=== PATIENT | male | born 1955 | race Caucasian/White ===

== ENCOUNTER → 2016-11-06 | Outpatient (CLI) | payer BC ==
[2016-11-06 11:20] LABS: CHLORIDE,CL 106 mmol/L (98-110); SODIUM,NA 137 mmol/L (136-146)
== END ==
LOC: MW.CHIM 10:35
PROVIDERS: ATTEND Internal Medicine
DX: Z12.5 Encounter for screening for malignant neoplasm of prostate (principal); I10 Essential (primary) hypertension; B19.20 Unspecified viral hepatitis C without hepatic coma
CPT/HCPCS: 36415; 80053; 80061; 83036; 84439; 84443; 85025; G0103; 87522

== ENCOUNTER 2019-03-14 18:15 | Observation (INO) | payer MEDICARE, OTHER ==
[2019-03-14] MEDS ORDERED: Sodium Chloride 0.9% 2.5 ML Syringe FLUSH PRN (18:21)
[2019-03-14] MEDS ORDERED: Sodium Chloride 0.9% 10 ML Syringe FLUSH PRN (18:21)
[2019-03-14] MEDS ORDERED: Ondansetron 4 MG/2 ML SDV IVPUSH ONE (18:22)
[2019-03-14] MEDS ORDERED: Aspirin 81 MG Tab.Chew PO ONE (18:35)
[2019-03-14] MEDS ORDERED: Nitroglycerin 0.4 MG Tab.SL ONE (18:37)
--- NOTE | 2019-03-14 18:42 | EDM.PDOC ---
ED HPI GENERAL MEDICAL PROBLEM - General Chief Complaint: Neurological Problem Stated Complaint: FAINT/DIZZINESS Time Seen by Provider: 03/14/19 18:16 Source of Information: Reports: Family History Limitations: Reports: No Limitations - History of Present Illness INITIAL COMMENTS - FREE TEXT/NARRATIVE: History of present illness: []Patient was sitting at home watching a game when he became very sweaty, dizzy with a spinning sensation and generally unwell. His took his blood pressure and found to be 180/100's which is unusual for him. He then complained of a headache and blurry vision, denies any numbness, tingling, chest pain or shortness of breath. Once in the ER patient admitted that he's had 2 episodes in the past 2 weeks with similar symptoms. He denies any palpitations and states that his mother suffers from atrial fibrillation. Review of systems: As per history of present illness and below otherwise all systems reviewed and negative. Past medical history: As per history of present illness and as reviewed below otherwise noncontributory. Surgical history: As per history of present illness and as reviewed below otherwise noncontributory. Social history: No reported history of drug or alcohol abuse. Family history: As per history of present illness and as reviewed below otherwise noncontributory. Physical exam: General: Well developed, well nourished in NAD HEENT: Atraumatic, normocephalic, pupils reactive, negative for conjunctival pallor or scleral icterus, mucous membranes moist, throat clear, neck supple, nontender, trachea midline. Lungs: Clear to auscultation, breath sounds equal bilaterally, chest nontender. Heart: S1S2, regular, negative for clicks, rubs, or JVD. Abdomen: NABS, Soft, nondistended, nontender. Negative for masses or hepatosplenomegaly. Negative for costovertebral tenderness. Pelvis: Stable nontender. Genitourinary: Deferred. Rectal: Deferred. Extremities: Atraumatic, negative for cords or calf pain. Neurovascular unremarkable. Neuro: Awake, alert, oriented. Cranial nerves II through XII unremarkable. Cerebellum unremarkable. Motor and sensory unremarkable throughout. Exam nonfocal. Skin:warm and dry Diagnostics: CBC, chemistry, EKG, troponin, chest x-ray, CT head Therapeutics: Aspirin, nitroglycerin ED Course: Improved. After one nitroglycerin patient's blood pressure dropped to 150/80's and symptoms began to resolve. discussed with Dr. Elias who agrees to admit for observation of blood pressure control, and repeat troponins. Impression: Hypertensive urgency Prescriptions: none Plan: Admit for observation Definitive disposition and diagnosis as appropriate pending reevaluation and review of above. 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 Sulfa (Sulfonamide Allergy víctor Verified 03/14/19 20:56 Antibiotics) corry syndrome Home Meds: Home Meds Ascorbic Acid [Vitamin C] 500 mg PO DAILY 05/05/15 [History] Ca Carb/D3/Argnin/Inos/Silicon [Bone Density Calcium + D Cplt] 1 tab PO DAILY [History] Calcium Polycarbophil [Fiber Tabs] 1 tab PO DAILY 05/05/15 [History] Cholecalciferol (Vitamin D3) [Vitamin D3] 2,000 units PO BID 05/05/15 [History] L.acidoph,Paracasei, B.lactis [Probiotic] 1 tab PO DAILYBH 05/05/15 [History] Losartan Potassium 100 mg PO DAILY 05/05/15 [History] Metoprolol Succinate [Toprol XL] 50 mg PO BEDTIME 05/05/15 [History] Multivitamin [Multivitamins] 1 tab PO DAILY 05/05/15 [History] [place]-3 Fatty Acids [[place]-3] 1 tab PO DAILY 05/05/15 [History] Psyllium Husk/Aspartame [Metamucil [facility] Powder] 1 dose PO DAILY 05/05/15 [History] [place]'s Wort 1 tab PO DAILY 05/05/15 [History] Vitamin B Complex 1 tab PO DAILY 05/05/15 [History] hydroCHLOROthiazide [Hydrochlorothiazide] 12.5 mg PO DAILY 05/05/15 [History] Past Medical History HEENT History: Reports: None Cardiovascular History: Reports: Hypertension Respiratory History: Reports: Other (See Below) Other Respiratory History: former smoker Other Gastrointestinal History: hx hepatitis C (finished tx for this in 2014); occasional heartburn Musculoskeletal History: Reports: None Neurological History: Reports: None Psychiatric History: Reports: Anxiety - Infectious Disease History Infectious Disease History: Reports: Chicken Pox, Hepatitis C, Measles, Mumps, Other (See Below) Other Infectious Disease History: treated and cleared from Hep C - Past Surgical History HEENT Surgical History: Reports: Cataract Surgery, Other (See Below) Other HEENT Surgeries/Procedures: hx sinus surgery; dental implants Cardiovascular Surgical History: Reports: None Respiratory Surgical History: Reports: None GI Surgical History: Reports: None Other Neurological Surgeries/Procedures: hx of back and neck surgery Musculoskeletal Surgical History: Reports: Carpal Tunnel Other Musculoskeletal Surgeries/Procedures:: hx of back, neck, R knee, hand and elbow surgery Social & Family History - Family History Family Medical History: Noncontributory - Tobacco Use Smoking Status *Q: Former Smoker Used Tobacco, but Quit: Yes Month/Year Tobacco Last Used: 2005 - Caffeine Use Caffeine Use: Reports: Coffee - Alcohol Use Days Per Week of Alcohol Use: 7 Number of Drinks Per Day: 1 Total Drinks Per Week: 7 - Recreational Drug Use Recreational Drug Use: No ED ROS GENERAL - Review of Systems Review Of Systems: See Below ED EXAM, DIZZINESS - Physical Exam Exam: See Below Course - Vital Signs Last Recorded V/S: Last Vital Signs Temp 98.0 F 03/15/19 04:00 Pulse 70 03/15/19 04:00 Resp 16 03/15/19 04:00 BP 124/60 03/15/19 04:00 Pulse Ox 93 L 03/15/19 04:00 - Orders/Labs/Meds Orders: Active Orders 24 hr Category Date Time Status Patient Status [ADT] Stat ADT 03/14/19 19:12 Active Cardiac Monitoring [RC] Q8H Care 03/14/19 18:21 Active EKG Documentation Completion [RC] STAT Care 03/14/19 18:21 Active Nitroglycerin [Nitrostat] Med 03/14/19 18:56 Active 0.4 mg SL Q5M PRN Sodium Chloride 0.9% [Saline Flush] Med 03/14/19 18:21 Active 10 ml FLUSH ASDIRECTED PRN Sodium Chloride 0.9% [Saline Flush] Med 03/14/19 18:21 Active 2.5 ml FLUSH ASDIRECTED PRN Saline Lock Insert [OM.PC] Stat Oth 03/14/19 18:21 Ordered Medication Orders Acetaminophen (Tylenol) 650 mg PO Q6H PRN PRN Reason: Pain Nitroglycerin (Nitrostat) 0.4 mg SL Q5M PRN PRN Reason: Chest Pain Oxycodone HCl (Oxycodone) 5 mg PO Q4H PRN PRN Reason: Pain (moderate 4-6) Sodium Chloride (Saline Flush) 10 ml FLUSH ASDIRECTED PRN PRN Reason: Keep Vein Open Last Admin: 03/14/19 18:40 Dose: 10 ml Sodium Chloride (Saline Flush) 2.5 ml FLUSH ASDIRECTED PRN PRN Reason: Keep Vein Open Last Admin: 03/14/19 18:40 Dose: 2.5 ml Labs: Laboratory Tests 03/14/19 03/14/19 Range/Units 18:30 18:30 WBC 6.13 (4.0-11.0) K/uL RBC 4.57 (4.50-5.90) M/uL Hgb 14.2 (13.0-17.0) g/dL Hct 41.9 (38.0-50.0) % MCV 91.7 (80.0-98.0) fL MCH 31.1 (27.0-32.0) pg MCHC 33.9 (31.0-37.0) g/dL RDW Std Deviation 46.3 (28.0-62.0) fl RDW Coeff of Shantal 14 (11.0-15.0) % Plt Count 156 (150-400) K/uL MPV 9.10 (7.40-12.00) fL Neut % (Auto) 58.1 (48.0-80.0) % Lymph % (Auto) 27.7 (16.0-40.0) % [place] % (Auto) 10.9 (0.0-15.0) % Eos % (Auto) 2.6 (0.0-7.0) % Baso % (Auto) 0.7 (0.0-1.5) % Neut # (Auto) 3.6 (1.4-5.7) K/uL Lymph # (Auto) 1.7 (0.6-2.4) K/uL [place] # (Auto) 0.7 (0.0-0.8) K/uL Eos # (Auto) 0.2 (0.0-0.7) K/uL Baso # (Auto) 0.0 (0.0-0.1) K/uL Nucleated RBC % 0.0 /100WBC Nucleated RBCs # 0 K/uL Sodium 138 (136-148) mmol/L Potassium 3.6 (3.5-5.1) mmol/L Chloride 101 (98-107) mmol/L Carbon Dioxide 27.4 (21.0-32.0) mmol/L BUN 29 H (7.0-18.0) mg/dL Creatinine 1.3 (0.8-1.3) mg/dL Est Cr Clr Drug Dosing 62.18 mL/min Estimated GFR (MDRD) 55.4 ml/min Glucose 124 H (74-106) mg/dL Calcium 9.2 (8.5-10.1) mg/dL Total Bilirubin 0.3 (0.2-1.0) mg/dL AST 35 (15-37) IU/L ALT 71 H (14-63) IU/L Alkaline Phosphatase 52 (46-116) U/L Troponin I < 0.050 (0.000-0.056) ng/mL Total Protein 7.3 (6.4-8.2) g/dL Albumin 3.6 (3.4-5.0) g/dL Globulin 3.7 (2.6-4.0) g/dL Albumin/Globulin Ratio 1.0 (0.9-1.6) Meds: Medications Generic Name Dose Route Start Last Admin Trade Name Freq PRN Reason Stop Dose Admin Acetaminophen 650 mg 03/14/19 22:10 Tylenol PO Q6H PRN Pain Nitroglycerin 0.4 mg 03/14/19 18:56 Nitrostat SL Q5M PRN Chest Pain Oxycodone HCl 5 mg 03/14/19 22:11 Oxycodone PO Q4H PRN Pain (moderate 4-6) Sodium Chloride 10 ml 03/14/19 18:21 03/14/19 18:40 Saline Flush FLUSH 10 ml ASDIRECTED PRN Administration Keep Vein Open Sodium Chloride 2.5 ml 03/14/19 18:21 03/14/19 18:40 Saline Flush FLUSH 2.5 ml ASDIRECTED PRN Administration Keep Vein Open Discontinued Medications Generic Name Dose Route Start Last Admin Trade Name Freq PRN Reason Stop Dose Admin Aspirin 324 mg 03/14/19 18:35 03/14/19 18:39 Aspirin PO 03/14/19 18:36 324 mg ONETIME ONE Administration Nitroglycerin 0.4 mg 03/14/19 18:35 03/14/19 19:05 Nitrostat SL 0.4 mg Q5M PRN Administration Chest Pain Nitroglycerin Confirm 03/14/19 18:37 03/14/19 18:59 Nitrostat Administered 03/14/19 18:38 Not Given Dose 1.2 mg .ROUTE .STK-MED ONE Ondansetron HCl 4 mg 03/14/19 18:22 03/14/19 18:40 Zofran IVPUSH 03/14/19 18:23 4 mg ONETIME ONE Administration Departure - Departure Time of Disposition: 20:00 Disposition: Refer to Observation Condition: Good Clinical Impression: Hypertensive urgency - Discharge Information *PRESCRIPTION DRUG MONITORING PROGRAM REVIEWED*: No *COPY OF PRESCRIPTION DRUG MONITORING REPORT IN PATIENT FRITZ: No - My Orders Last 24 Hours: My Active Orders 03/14/19 18:21 Cardiac Monitoring [RC] Q8H EKG Documentation Completion [RC] STAT Sodium Chloride 0.9% [Saline Flush] 10 ml FLUSH ASDIRECTED PRN Sodium Chloride 0.9% [Saline Flush] 2.5 ml FLUSH ASDIRECTED PRN Saline Lock Insert [OM.PC] Stat 03/14/19 18:56 Nitroglycerin [Nitrostat] 0.4 mg SL Q5M PRN 03/14/19 19:12 Patient Status [ADT] Stat - Assessment/Plan Last 24 Hours: My Active Orders 03/14/19 18:21 Cardiac Monitoring [RC] Q8H EKG Documentation Completion [RC] STAT Sodium Chloride 0.9% [Saline Flush] 10 ml FLUSH ASDIRECTED PRN Sodium Chloride 0.9% [Saline Flush] 2.5 ml FLUSH ASDIRECTED PRN Saline Lock Insert [OM.PC] Stat 03/14/19 18:56 Nitroglycerin [Nitrostat] 0.4 mg SL Q5M PRN 03/14/19 19:12 Patient Status [ADT] Stat
[2019-03-14] MEDS: Nitroglycerin 0.4 MG Tab.SL SL PRN ×3 (18:55→19:05)
[2019-03-14] MEDS ORDERED: Nitroglycerin 0.4 MG Tab.SL SL PRN (18:56)
[2019-03-14 19:07] LABS: BLOOD UREA NITROGEN,BUN 29 mg/dL (7.0-18.0); CARBON DIOXIDE,CO2 27.4 mmol/L (21.0-32.0); CHLORIDE,CL 101 mmol/L (98-107); GLUCOSE RANDOM 124 mg/dL (74-106); POTASSIUM,K 3.6 mmol/L (3.5-5.1); SODIUM,NA 138 mmol/L (136-148)
--- NOTE | 2019-03-14 19:29 | CR ---
INDICATION: Short of breath. TECHNIQUE: AP chest. COMPARISON: 10/13/2018 FINDINGS: Upper limits of normal heart size. Pulmonary vasculature is unremarkable. Old healed granulomatous disease. Lungs are otherwise grossly clear. No pleural fluid or pneumothorax. IMPRESSION: No signs of acute thoracic disease. Dictated by Deyvi Quintero MD @ 03/14/2019 7:28:22 PM Dictated by: Deyvi Quitnero MD @ 03/14/2019 19:28:38 (Electronically Signed)
--- NOTE | 2019-03-14 19:38 | CT ---
INDICATION: Pain. TECHNIQUE: Noncontrast axial images with coronal and sagittal reconstructions. COMPARISON: None. FINDINGS: No abnormal intracranial mass effect or midline shift. No intracranial hemorrhage. Mild periventricular white matter changes are likely related to chronic small vessel disease. No loss of garrett-white matter differentiation is seen. CSF spaces are age-appropriate. No acute osseous abnormality. Postsurgical changes paranasal sinuses. IMPRESSION: No CT evidence of an acute intracranial abnormality. Dictated by Deyvi Quintero MD @ 03/14/2019 7:35:27 PM Please note that all CT scans at this facility use dose modulation, iterative reconstruction, and/or weight-based dosing when appropriate to reduce radiation dose to as low as reasonably achievable. Dictated by: Deyvi Quintero MD @ 03/14/2019 19:35:43 (Electronically Signed)
[2019-03-14] MEDS ORDERED: Acetaminophen 325 MG Tab PO PRN (22:10)
[2019-03-14] MEDS ORDERED: oxyCODONE 5 MG Tab PO PRN (22:11)
[2019-03-15 06:57] LABS: BLOOD UREA NITROGEN,BUN 23 mg/dL (7.0-18.0); CARBON DIOXIDE,CO2 27.1 mmol/L (21.0-32.0); CHLORIDE,CL 107 mmol/L (98-107); GLUCOSE RANDOM 122 mg/dL (74-106); POTASSIUM,K 4.2 mmol/L (3.5-5.1); SODIUM,NA 141 mmol/L (136-148)
--- NOTE | 2019-03-15 07:18 | PCM.HP.2 ---
H&P History of Present Illness - General Date of Service: 03/15/19 Admit Problem/Dx: Admission Diagnosis/Problem Admission Diagnosis/Problem Hypertensive urgency Source of Information: Patient History Limitations: Reports: No Limitations - History of Present Illness Initial Comments - Free Text/Narative: The patient is a 63-year-old gentleman who had presented to the emergency department while at home watching a game became dizzy, diaphoretic and hypotensive. The patient to check his blood pressure at home and is found to be 180/100 mmHg. He also reported blurry vision as well as severe tinnitus. The patient has a past medical history of hypertension. He was also concerned because he has a family history of atrial fibrillation. The patient has had similar episodes in the past. 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 Sulfa (Sulfonamide Allergy víctor Verified 03/14/19 20:56 Antibiotics) corry syndrome Home Medications: Home Meds Ascorbic Acid [Vitamin C] 500 mg PO DAILY 05/05/15 [History] Ca Carb/D3/Argnin/Inos/Silicon [Bone Density Calcium + D Cplt] 1 tab PO DAILY [History] Calcium Polycarbophil [Fiber Tabs] 1 tab PO DAILY 05/05/15 [History] Cholecalciferol (Vitamin D3) [Vitamin D3] 2,000 units PO BID 05/05/15 [History] L.acidoph,Paracasei, B.lactis [Probiotic] 1 tab PO DAILYBH 05/05/15 [History] Losartan Potassium 100 mg PO DAILY 05/05/15 [History] Metoprolol Succinate [Toprol XL] 50 mg PO BEDTIME 05/05/15 [History] Multivitamin [Multivitamins] 1 tab PO DAILY 05/05/15 [History] [place]-3 Fatty Acids [[place]-3] 1 tab PO DAILY 05/05/15 [History] Psyllium Husk/Aspartame [Metamucil [facility] Powder] 1 dose PO DAILY 05/05/15 [History] [place]'s Wort 1 tab PO DAILY 05/05/15 [History] Vitamin B Complex 1 tab PO DAILY 05/05/15 [History] hydroCHLOROthiazide [Hydrochlorothiazide] 12.5 mg PO DAILY 05/05/15 [History] Furosemide [Lasix] 20 mg PO DAILY PRN #30 tab 03/15/19 [Rx] Past Medical History HEENT History: Reports: None Other HEENT History: w/ hearing aid Cardiovascular History: Reports: Hypertension Respiratory History: Reports: Other (See Below) Other Respiratory History: former smoker Gastrointestinal History: Reports: GERD, Hepatitis Other Gastrointestinal History: hx hepatitis C (finished tx for this in 2014); occasional heartburn Genitourinary History: Reports: None Musculoskeletal History: Reports: None Neurological History: Reports: None Psychiatric History: Reports: Anxiety Endocrine/Metabolic History: Reports: Obesity/BMI 30+ Hematologic History: Reports: None Immunologic History: Reports: None Oncologic (Cancer) History: Reports: None Dermatologic History: Reports: None - Infectious Disease History Infectious Disease History: Reports: Chicken Pox, Hepatitis C, Measles, Mumps, Other (See Below) Other Infectious Disease History: treated and cleared from Hep C - Past Surgical History HEENT Surgical History: Reports: Cataract Surgery, Other (See Below) Other HEENT Surgeries/Procedures: hx sinus surgery; dental implants Cardiovascular Surgical History: Reports: None Respiratory Surgical History: Reports: None GI Surgical History: Reports: None Other Neurological Surgeries/Procedures: hx of back and neck surgery Musculoskeletal Surgical History: Reports: Carpal Tunnel Other Musculoskeletal Surgeries/Procedures:: hx of back, neck, R knee, hand and elbow surgery Social & Family History - Family History Family Medical History: Noncontributory - Tobacco Use Smoking Status *Q: Former Smoker Used Tobacco, but Quit: Yes Month/Year Tobacco Last Used: 2005 Second Hand Smoke Exposure: No - Caffeine Use Caffeine Use: Reports: Coffee - Alcohol Use Days Per Week of Alcohol Use: 7 Number of Drinks Per Day: 1 Total Drinks Per Week: 7 Date of Last Drink: 03/14/19 Time of Last Drink: 15:30 - Recreational Drug Use Recreational Drug Use: No - Living Situation & Occupation Living situation: Reports: , with Family Occupation: Employed H&P Review of Systems - Review of Systems: Review Of Systems: See Below General: Reports: No Symptoms HEENT: Reports: No Symptoms Pulmonary: Reports: No Symptoms Cardiovascular: Reports: No Symptoms Gastrointestinal: Reports: No Symptoms Genitourinary: Reports: No Symptoms Musculoskeletal: Reports: No Symptoms Skin: Reports: No Symptoms Psychiatric: Reports: No Symptoms Neurological: Reports: No Symptoms Hematologic/Lymphatic: Reports: No Symptoms Immunologic: Reports: No Symptoms Exam - Exam Exam: See Below - Vital Signs Vital Signs: Last Vital Signs Temp 36.7 C 03/15/19 04:00 Pulse 70 03/15/19 04:00 Resp 16 03/15/19 04:00 BP 124/60 03/15/19 04:00 Pulse Ox 93 L 03/15/19 04:00 Weight: 122.583 kg - Exam Quality Assessment: No: Supplemental Oxygen General: Alert, Oriented, Cooperative HEENT: Conjunctiva Clear, EACs Clear, EOMI, Mucosa Moist & [place], Nares Patent, PERRLA Neck: Supple, Trachea Midline Lungs: Clear to Auscultation, Normal Respiratory Effort Cardiovascular: Regular Rate, Regular Rhythm GI/Abdominal Exam: Normal Bowel Sounds, Soft, Non-Tender, No Distention Back Exam: Normal Inspection, Full Range of Motion Extremities: Normal Inspection, No Pedal Edema Skin: Warm, Dry, Intact Neurological: Cranial Nerves Intact Neuro Extensive - Mental Status: Alert, Oriented x3 Psychiatric: Alert, Normal Affect, Normal Mood - Patient Data Lab Results Last 24 hrs: Laboratory Results - last 24 hr 03/14/19 03/14/19 03/15/19 Range/Units 18:30 18:30 00:35 WBC 6.13 (4.0-11.0) K/uL RBC 4.57 (4.50-5.90) M/uL Hgb 14.2 (13.0-17.0) g/dL Hct 41.9 (38.0-50.0) % MCV 91.7 (80.0-98.0) fL MCH 31.1 (27.0-32.0) pg MCHC 33.9 (31.0-37.0) g/dL RDW Std Deviation 46.3 (28.0-62.0) fl RDW Coeff of Shantal 14 (11.0-15.0) % Plt Count 156 (150-400) K/uL MPV 9.10 (7.40-12.00) fL Neut % (Auto) 58.1 (48.0-80.0) % Lymph % (Auto) 27.7 (16.0-40.0) % [place] % (Auto) 10.9 (0.0-15.0) % Eos % (Auto) 2.6 (0.0-7.0) % Baso % (Auto) 0.7 (0.0-1.5) % Neut # (Auto) 3.6 (1.4-5.7) K/uL Lymph # (Auto) 1.7 (0.6-2.4) K/uL [place] # (Auto) 0.7 (0.0-0.8) K/uL Eos # (Auto) 0.2 (0.0-0.7) K/uL Baso # (Auto) 0.0 (0.0-0.1) K/uL Nucleated RBC % 0.0 /100WBC Nucleated RBCs # 0 K/uL Sodium 138 (136-148) mmol/L Potassium 3.6 (3.5-5.1) mmol/L Chloride 101 (98-107) mmol/L Carbon Dioxide 27.4 (21.0-32.0) mmol/L BUN 29 H (7.0-18.0) mg/dL Creatinine 1.3 (0.8-1.3) mg/dL Est Cr Clr Drug Dosing 62.18 mL/min Estimated GFR (MDRD) 55.4 ml/min Glucose 124 H (74-106) mg/dL Calcium 9.2 (8.5-10.1) mg/dL Total Bilirubin 0.3 (0.2-1.0) mg/dL AST 35 (15-37) IU/L ALT 71 H (14-63) IU/L Alkaline Phosphatase 52 (46-116) U/L Troponin I < 0.050 < 0.050 (0.000-0.056) ng/mL Total Protein 7.3 (6.4-8.2) g/dL Albumin 3.6 (3.4-5.0) g/dL Globulin 3.7 (2.6-4.0) g/dL Albumin/Globulin Ratio 1.0 (0.9-1.6) 03/15/19 03/15/19 03/15/19 Range/Units 06:31 06:31 06:31 WBC 5.09 (4.0-11.0) K/uL RBC 4.35 L (4.50-5.90) M/uL Hgb 13.3 (13.0-17.0) g/dL Hct 40.0 (38.0-50.0) % MCV 92.0 (80.0-98.0) fL MCH 30.6 (27.0-32.0) pg MCHC 33.3 (31.0-37.0) g/dL RDW Std Deviation 46.9 (28.0-62.0) fl RDW Coeff of Shantal 14 (11.0-15.0) % Plt Count 138 L (150-400) K/uL MPV 9.20 (7.40-12.00) fL Neut % (Auto) 45.2 L (48.0-80.0) % Lymph % (Auto) 37.1 (16.0-40.0) % [place] % (Auto) 13.6 (0.0-15.0) % Eos % (Auto) 3.1 (0.0-7.0) % Baso % (Auto) 1.0 (0.0-1.5) % Neut # (Auto) 2.3 (1.4-5.7) K/uL Lymph # (Auto) 1.9 (0.6-2.4) K/uL [place] # (Auto) 0.7 (0.0-0.8) K/uL Eos # (Auto) 0.2 (0.0-0.7) K/uL Baso # (Auto) 0.1 (0.0-0.1) K/uL Nucleated RBC % 0.0 /100WBC Nucleated RBCs # 0 K/uL Sodium 141 (136-148) mmol/L Potassium 4.2 (3.5-5.1) mmol/L Chloride 107 (98-107) mmol/L Carbon Dioxide 27.1 (21.0-32.0) mmol/L BUN 23 H (7.0-18.0) mg/dL Creatinine 1.1 (0.8-1.3) mg/dL Est Cr Clr Drug Dosing 73.48 mL/min Estimated GFR (MDRD) > 60.0 ml/min Glucose 122 H (74-106) mg/dL Calcium 8.8 (8.5-10.1) mg/dL Total Bilirubin (0.2-1.0) mg/dL AST (15-37) IU/L ALT (14-63) IU/L Alkaline Phosphatase (46-116) U/L Troponin I < 0.050 (0.000-0.056) ng/mL Total Protein (6.4-8.2) g/dL Albumin (3.4-5.0) g/dL Globulin (2.6-4.0) g/dL Albumin/Globulin Ratio (0.9-1.6) Result Diagrams: 03/15/19 06:31 03/15/19 06:31 - Problem List (1) Anxiety SNOMED Code(s): 81231117 ICD Code: F41.9 - ANXIETY DISORDER, UNSPECIFIED Status: Chronic Priority : High Current Visit: Yes (2) History of cardiomyopathy in adulthood SNOMED Code(s): 815993268 ICD Code: Z86.79 - PERSONAL HISTORY OF OTHER DISEASES OF THE CIRCULATORY SYSTEM Status: Resolved Priority: Medium Current Visit: Yes (3) Hypertensive urgency SNOMED Code(s): 268996038 ICD Code: I16.0 - HYPERTENSIVE URGENCY Status: Acute Priority: High Current Visit: Yes Problem List Initiated/Reviewed/Updated: Yes Orders Last 24hrs: Active Orders 24 hr Category Date Time Status Patient Status [ADT] Stat ADT 03/14/19 19:12 Active Cardiac Monitoring [RC] Q8H Care 03/14/19 18:21 Active EKG 12 Lead [EKG Documentation Completion] [RC] AM Care 03/15/19 06:00 Active EKG Documentation Completion [RC] STAT Care 03/14/19 18:21 Active Heart Healthy Diet [DIET] Diet 03/15/19 Breakfast Active Acetaminophen [Tylenol] Med 03/14/19 22:10 Active 650 mg PO Q6H PRN Cholecalciferol (Vitamin D3) [Vitamin D3] Med 03/15/19 09:00 Active 50 mcg PO BID Losartan [Cozaar] Med 03/15/19 09:00 Active 100 mg PO DAILY Metoprolol Succinate [Toprol XL] Med 03/15/19 21:00 Active 50 mg PO BEDTIME Nitroglycerin [Nitrostat] Med 03/14/19 18:56 Active 0.4 mg SL Q5M PRN Sodium Chloride 0.9% [Saline Flush] Med 03/14/19 18:21 Active 10 ml FLUSH ASDIRECTED PRN Sodium Chloride 0.9% [Saline Flush] Med 03/14/19 18:21 Active 2.5 ml FLUSH ASDIRECTED PRN Vitamin B Complex Med 03/15/19 09:00 Pending 1 tab PO DAILY hydroCHLOROthiazide Med 03/15/19 09:00 Active 12.5 mg PO DAILY oxyCODONE Med 03/14/19 22:11 Active 5 mg PO Q4H PRN Saline Lock Insert [OM.PC] Stat Oth 03/14/19 18:21 Ordered Medication Orders Acetaminophen (Tylenol) 650 mg PO Q6H PRN PRN Reason: Pain Cholecalciferol (Vitamin D3) 50 mcg PO BID NOEL Hydrochlorothiazide (Hydrochlorothiazide) 12.5 mg PO DAILY NOEL Losartan Potassium (Cozaar) 100 mg PO DAILY NOEL Metoprolol Succinate (Toprol Xl) 50 mg PO BEDTIME NOEL Nitroglycerin (Nitrostat) 0.4 mg SL Q5M PRN PRN Reason: Chest Pain Non-Formulary Medication (Vitamin B Complex) 1 tab PO DAILY NOEL Oxycodone HCl (Oxycodone) 5 mg PO Q4H PRN PRN Reason: Pain (moderate 4-6) Sodium Chloride (Saline Flush) 10 ml FLUSH ASDIRECTED PRN PRN Reason: Keep Vein Open Last Admin: 03/14/19 18:40 Dose: 10 ml Sodium Chloride (Saline Flush) 2.5 ml FLUSH ASDIRECTED PRN PRN Reason: Keep Vein Open Last Admin: 03/14/19 18:40 Dose: 2.5 ml Assessment/Plan Comment:: The patient is a 63-year-old gentleman who had been admitted to observation. The patient had continued to improve through the short course of hospitalization. The patient had 3 sets of troponins which were essentially undetectable. EKG showed no changes. The patient has expressed a desire to go home. The patient also has been recommended due to his personal history of cardiomyopathy is been recommended to follow-up with his infection control specialist and his primary care physician. The patient has been recommended to continue with a heart healthy, low-sodium diet as tolerated. He is also to have activity as tolerated. Patient has been hemodynamically stable his blood pressure has improved to 130/85 mmHg. The patient also had expressed some edema and as a result of this he has been given furosemide 20 mg by mouth daily as needed for the edema. The patient has been discharged with the recommendations listed above. This history and physical will also be considered a discharge summary. - Mortality Measure Prognosis:: Good
[2019-03-15 07:48] VITALS: BP 130/85
[2019-03-15] MEDS ORDERED: VITAMIN B COMPLEX PO SCH (09:00)
[2019-03-15] MEDS ORDERED: Losartan 50 MG Tab PO SCH (09:00)
[2019-03-15] MEDS ORDERED: Hydrochlorothiazide 12.5 MG Cap PO SCH (09:00)
[2019-03-15] MEDS ORDERED: Cholecalciferol (Vitamin D3) 25 MCG Tab PO SCH (09:00)
[2019-03-15] MEDS ORDERED: Metoprolol Succinate 50 MG Tab.ER PO SCH (21:00)
== END 2019-03-15 11:40 | disposition home or self-care (01) ==
LOC: MW.ED 18:15 → MW.MS 19:28
PROVIDERS: ADMIT Internal Medicine; ATTEND Internal Medicine
DX: I16.0 Hypertensive urgency (principal); K21.9 Gastro-esophageal reflux disease without esophagitis; F41.9 Anxiety disorder, unspecified; E66.9 Obesity, unspecified; Z86.79 Personal history of other diseases of the circulatory system; Z88.1 Allergy status to other antibiotic agents; Z88.8 Allergy status to other drugs, medicaments and biological substances; Z88.2 Allergy status to sulfonamides; Z79.899 Other long term (current) drug therapy; Z68.36 Body mass index [BMI] 36.0-36.9, adult; Z87.891 Personal history of nicotine dependence
CPT/HCPCS: 36415; 70450; 71045; 80048; 80053; 84484; 85025; 93005; 96374; 99285; A9270; G0378; J2405

== ENCOUNTER 2021-01-24 16:45 | Observation (INO) | payer MEDICARE, OTHER ==
--- NOTE | 2021-01-24 17:29 | EDM.PDOC ---
<DavidPrem Rodriguez - Last Filed: 01/24/21 17:56> ED HPI GENERAL MEDICAL PROBLEM - General Chief Complaint: General Stated Complaint: ALAN REF GISELA Time Seen by Provider: 01/24/21 16:49 Source of Information: Reports: Patient History Limitations: Reports: No Limitations - History of Present Illness INITIAL COMMENTS - FREE TEXT/NARRATIVE: Patient is a 65-year-old male who was sent in for evaluation for NOMI. His PMD states that his potassium is elevated as well as his creatinine from his baseline. Patient states that he is on lisinopril and a few water pills as well. He also reports he has been taking Motrin about twice a day for the past few weeks due to aches and pains. He states that he is urinating frequently and has no difficulty with that denies abdominal pain fever chills or other complaints. Patient has of his PMD denies him here he had not come to hospital for other complaints. 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 Sulfa (Sulfonamide Allergy víctor Verified 01/24/21 17:04 Antibiotics) corry syndrome Home Meds: Home Meds Ascorbic Acid [Vitamin C] 500 mg PO DAILY 05/05/15 [History] Calcium/D3/Argnin/Inos/Silicon [Bone Density Calcium + D Cplt] 1 tab PO DAILY 05/05/15 [History] Cholecalciferol (Vitamin D3) [Vitamin D3] 2,000 units PO BID 05/05/15 [History] L.acidoph,Paracasei, B.lactis [Probiotic] 1 tab PO DAILYBH 05/05/15 [History] Losartan Potassium 100 mg PO DAILY 05/05/15 [History] Metoprolol Succinate [Toprol XL] 50 mg PO BEDTIME 05/05/15 [History] Multivitamin [Multivitamins] 1 tab PO DAILY 05/05/15 [History] [place]-3 Fatty Acids [[place]-3] 1 tab PO DAILY 05/05/15 [History] Psyllium Husk/Aspartame [Metamucil [facility] Powder] 1 dose PO DAILY 05/05/15 [History] Ken's Wort 1 tab PO DAILY 05/05/15 [History] Vitamin B Complex 1 tab PO DAILY 05/05/15 [History] calcium polycarbophiL [Fiber Tabs] 1 tab PO DAILY 05/05/15 [History] hydroCHLOROthiazide [Hydrochlorothiazide] 12.5 mg PO DAILY 05/05/15 [History] Furosemide [Lasix] 20 mg PO DAILY PRN #30 tab 03/15/19 [Rx] Past Medical History HEENT History: Reports: None Other HEENT History: w/ hearing aid Cardiovascular History: Reports: Hypertension Respiratory History: Reports: Other (See Below) Other Respiratory History: former smoker Gastrointestinal History: Reports: GERD, Hepatitis Other Gastrointestinal History: hx hepatitis C (finished tx for this in 2014); occasional heartburn Genitourinary History: Reports: None Musculoskeletal History: Reports: None Neurological History: Reports: None Psychiatric History: Reports: Anxiety Endocrine/Metabolic History: Reports: Obesity/BMI 30+ Hematologic History: Reports: None Immunologic History: Reports: None Oncologic (Cancer) History: Reports: None Dermatologic History: Reports: None - Infectious Disease History Infectious Disease History: Reports: Chicken Pox, Hepatitis C, Measles, Mumps, Other (See Below) Other Infectious Disease History: treated and cleared from Hep C - Past Surgical History HEENT Surgical History: Reports: Cataract Surgery, Other (See Below) Other HEENT Surgeries/Procedures: hx sinus surgery; dental implants Cardiovascular Surgical History: Reports: None Respiratory Surgical History: Reports: None GI Surgical History: Reports: None Other Neurological Surgeries/Procedures: hx of back and neck surgery Musculoskeletal Surgical History: Reports: Carpal Tunnel Other Musculoskeletal Surgeries/Procedures:: hx of back, neck, R knee, hand and elbow surgery Social & Family History - Family History Family Medical History: No Pertinent Family History - Caffeine Use Caffeine Use: Reports: Coffee - Living Situation & Occupation Living situation: Reports: , with Family Occupation: Employed ED ROS GENERAL - Review of Systems Review Of Systems: See Below Constitutional: Reports: No Symptoms HEENT: Reports: No Symptoms Respiratory: Reports: No Symptoms Cardiovascular: Reports: No Symptoms Endocrine: Reports: No Symptoms GI/Abdominal: Reports: No Symptoms : Reports: No Symptoms Musculoskeletal: Reports: No Symptoms Skin: Reports: No Symptoms Neurological: Reports: No Symptoms Psychiatric: Reports: No Symptoms Hematologic/Lymphatic: Reports: No Symptoms Immunologic: Reports: No Symptoms ED EXAM, GENERAL - Physical Exam Exam: See Below Exam Limited By: No Limitations General Appearance: Alert, WD/WN, No Apparent Distress Head: Atraumatic, Normocephalic Neck: Normal Inspection, Supple, Non-Tender Respiratory/Chest: No Respiratory Distress, Lungs Clear, Normal Breath Sounds Cardiovascular: Normal Peripheral Pulses, Regular Rate, Rhythm GI/Abdominal: Normal Bowel Sounds, Soft, Non-Tender Back Exam: Normal Inspection, Full Range of Motion Extremities: Normal Inspection, Normal Range of Motion Neurological: Alert, Oriented, CN II-XII Intact, Normal Cognition, Normal Gait #1 Interpretation EKG Date: 01/24/21 Time: 16:50 Rhythm: NSR Rate (Beats/Min): 79 EKG Interpretation Comments: slight peak t waves Departure - Departure Disposition: Refer to Observation Clinical Impression: Hyperkalemia, Acute renal injury - Discharge Information Referrals: Simon Conteh MD [Primary Care Provider] - Forms: ED Department Discharge Sepsis Event Note (ED) - Evaluation Sepsis Screening Result: No Definite Risk - Assessment/Plan Plan: Patient is a 65-year-old male presents today for new NOMI from his PMD. Will obtain urinary studies labs and reassess patient. <Brice Ecsalera - Last Filed: 01/24/21 20:28> ED HPI GENERAL MEDICAL PROBLEM - History of Present Illness INITIAL COMMENTS - FREE TEXT/NARRATIVE: Chest Xray: Normal cardiac silhouette No infiltrates or effusions identified. No PTX No evidence of acute bony fracture. As interpreted by ER MD: Jw Repeat potassium 5.6 which is down from 6.5. Repeat BUN/creatinine is 54/1.6 which is not significantly changed from earlier of 52/1.[address] Ricketts will admit patient to telemetry obs Course - Vital Signs Last Recorded V/S: Last Vital Signs Temp 97.7 F 01/24/21 16:56 Pulse 82 01/24/21 16:56 Resp 18 01/24/21 16:56 BP 153/100 H 01/24/21 16:56 Pulse Ox 97 01/24/21 16:56 - Orders/Labs/Meds Orders: Active Orders 24 hr Category Date Time Status Chest 1V Frontal [CR] Stat Exams 01/24/21 20:12 Taken CORONAVIRUS COVID-19 RAJIV [MOLEC] Stat Lab 01/24/21 19:01 Ordered OSMOLALITY - SERUM [REF] Stat Lab 01/24/21 18:02 Received OSMOLALITY - URINE Stat Lab 01/24/21 18:50 Received UREA NITROGEN, URINE Stat Lab 01/24/21 18:50 Received URIC ACID, URINE Stat Lab 01/24/21 18:50 Received Dextrose 50% in Water Med 01/24/21 18:52 Active 50 ml IVPUSH ASDIRECTED PRN Glucagon,Human Recombinant [GlucaGen] Med 01/24/21 18:52 Active 1 mg IM ASDIRECTED PRN Medication Orders Dextrose/Water (50% Dextrose In Water 50 Ml Syringe) 50 ml IVPUSH ASDIRECTED PRN PRN Reason: Hypoglycemia Glucagon (Glucagon,Human Recombinant 1 Mg Vial) 1 mg IM ASDIRECTED PRN PRN Reason: Hypoglycemia Labs: Laboratory Tests 01/24/21 01/24/21 01/24/21 Range/Units 17:08 17:08 18:50 WBC 15.46 H (4.0-11.0) K/uL RBC 4.82 (4.50-5.90) M/uL Hgb 15.1 (13.0-17.0) g/dL Hct 44.6 (38.0-50.0) % MCV 92.5 (80.0-98.0) fL MCH 31.3 (27.0-32.0) pg MCHC 33.9 (31.0-37.0) g/dL RDW Std Deviation 50.8 (28.0-62.0) fl RDW Coeff of Shantal 15 (11.0-15.0) % Plt Count 171 (150-400) K/uL MPV 9.70 (7.40-12.00) fL Neut % (Auto) 81.7 H (48.0-80.0) % Lymph % (Auto) 8.9 L (16.0-40.0) % [place] % (Auto) 9.2 (0.0-15.0) % Eos % (Auto) 0.1 (0.0-7.0) % Baso % (Auto) 0.1 (0.0-1.5) % Neut # (Auto) 12.6 H (1.4-5.7) K/uL Lymph # (Auto) 1.4 (0.6-2.4) K/uL [place] # (Auto) 1.4 H (0.0-0.8) K/uL Eos # (Auto) 0.0 (0.0-0.7) K/uL Baso # (Auto) 0.0 (0.0-0.1) K/uL Nucleated RBC % 0.0 /100WBC Nucleated RBCs # 0 K/uL Sodium 132 L (136-148) mmol/L Potassium 6.5 H (3.5-5.1) mmol/L Chloride 105 (98-107) mmol/L Carbon Dioxide 17.1 L (21.0-32.0) mmol/L BUN 52 H (7.0-18.0) mg/dL Creatinine 1.6 H (0.8-1.3) mg/dL Est Cr Clr Drug Dosing 49.17 mL/min Estimated GFR (MDRD) 43.3 ml/min Glucose 101 (74-106) mg/dL Calcium 8.2 L (8.5-10.1) mg/dL Phosphorus 3.6 (2.6-4.7) mg/dL Magnesium 2.3 (1.8-2.4) mg/dL Total Bilirubin 0.4 (0.2-1.0) mg/dL AST 23 (15-37) IU/L ALT 70 H (14-63) IU/L Alkaline Phosphatase 34 L (46-116) U/L Creatine Kinase 94 (26-308) U/L Total Protein 7.2 (6.4-8.2) g/dL Albumin 3.7 (3.4-5.0) g/dL Globulin 3.5 (2.6-4.0) g/dL Albumin/Globulin Ratio 1.1 (0.9-1.6) Urine Color YELLOW Urine Appearance CLEAR Urine pH 6.0 (5.0-8.0) Ur Specific [place] 1.010 (1.001-1.035) Urine Protein NEGATIVE (NEGATIVE) mg/dL Urine Glucose (UA) NEGATIVE (NEGATIVE) mg/dL Urine Ketones NEGATIVE (NEGATIVE) mg/dL Urine Occult Blood TRACE-INTACT H (NEGATIVE) Urine Nitrite NEGATIVE (NEGATIVE) Urine Bilirubin NEGATIVE (NEGATIVE) Urine Urobilinogen 0.2 (<2.0) EU/dL Ur Leukocyte Esterase NEGATIVE (NEGATIVE) U Hyaline Cast (Auto) 1-3 (0-2/LPF) Urine RBC 0-2 (0-2/HPF) Urine WBC NONE SEEN (0-5/HPF) Ur Epithelial Cells OCCASIONAL (NONE-FEW) Urine Bacteria RARE (NEGATIVE) Urine Mucus LIGHT (NONE-MOD) Ur Random Creatinine mg/dL Ur Random Sodium (40.0-220.0) mmol/L 01/24/21 01/24/21 Range/Units 18:50 20:00 WBC (4.0-11.0) K/uL RBC (4.50-5.90) M/uL Hgb (13.0-17.0) g/dL Hct (38.0-50.0) % MCV (80.0-98.0) fL MCH (27.0-32.0) pg MCHC (31.0-37.0) g/dL RDW Std Deviation (28.0-62.0) fl RDW Coeff of Shantal (11.0-15.0) % Plt Count (150-400) K/uL MPV (7.40-12.00) fL Neut % (Auto) (48.0-80.0) % Lymph % (Auto) (16.0-40.0) % [place] % (Auto) (0.0-15.0) % Eos % (Auto) (0.0-7.0) % Baso % (Auto) (0.0-1.5) % Neut # (Auto) (1.4-5.7) K/uL Lymph # (Auto) (0.6-2.4) K/uL [place] # (Auto) (0.0-0.8) K/uL Eos # (Auto) (0.0-0.7) K/uL Baso # (Auto) (0.0-0.1) K/uL Nucleated RBC % /100WBC Nucleated RBCs # K/uL Sodium 133 L (136-148) mmol/L Potassium 5.6 H (3.5-5.1) mmol/L Chloride 106 (98-107) mmol/L Carbon Dioxide 18.3 L (21.0-32.0) mmol/L BUN 54 H (7.0-18.0) mg/dL Creatinine 1.6 H (0.8-1.3) mg/dL Est Cr Clr Drug Dosing 49.17 mL/min Estimated GFR (MDRD) 43.3 ml/min Glucose 65 L (74-106) mg/dL Calcium 8.1 L (8.5-10.1) mg/dL Phosphorus (2.6-4.7) mg/dL Magnesium (1.8-2.4) mg/dL Total Bilirubin (0.2-1.0) mg/dL AST (15-37) IU/L ALT (14-63) IU/L Alkaline Phosphatase (46-116) U/L Creatine Kinase (26-308) U/L Total Protein (6.4-8.2) g/dL Albumin (3.4-5.0) g/dL Globulin (2.6-4.0) g/dL Albumin/Globulin Ratio (0.9-1.6) Urine Color Urine Appearance Urine pH (5.0-8.0) Ur Specific [place] (1.001-1.035) Urine Protein (NEGATIVE) mg/dL Urine Glucose (UA) (NEGATIVE) mg/dL Urine Ketones (NEGATIVE) mg/dL Urine Occult Blood (NEGATIVE) Urine Nitrite (NEGATIVE) Urine Bilirubin (NEGATIVE) Urine Urobilinogen (<2.0) EU/dL Ur Leukocyte Esterase (NEGATIVE) U Hyaline Cast (Auto) (0-2/LPF) Urine RBC (0-2/HPF) Urine WBC (0-5/HPF) Ur Epithelial Cells (NONE-FEW) Urine Bacteria (NEGATIVE) Urine Mucus (NONE-MOD) Ur Random Creatinine 29.1 mg/dL Ur Random Sodium 62.0 (40.0-220.0) mmol/L Meds: Medications Generic Name Dose Route Start Last Admin Trade Name Freq PRN Reason Stop Dose Admin Dextrose/Water 50 ml 01/24/21 18:52 50% Dextrose In Water 50 Ml Syringe IVPUSH ASDIRECTED PRN Hypoglycemia Glucagon 1 mg 01/24/21 18:52 Glucagon,Human Recombinant 1 Mg Vial IM ASDIRECTED PRN Hypoglycemia Discontinued Medications Generic Name Dose Route Start Last Admin Trade Name Freq PRN Reason Stop Dose Admin Acetaminophen 1,000 mg 01/24/21 18:10 01/24/21 19:26 Acetaminophen 500 Mg Tab PO 01/24/21 18:11 1,000 mg ONETIME ONE Administration Acetaminophen Confirm 01/24/21 18:08 01/24/21 19:23 Acetaminophen 500 Mg Tab Administered 01/24/21 18:09 Not Given Dose 1,000 mg .ROUTE .STK-MED ONE Calcium Gluconate 1 gm 01/24/21 18:16 01/24/21 18:25 Calcium Gluconate 10% 1 Gm/10 Ml Sdv IVPUSH 01/24/21 18:17 1 gm ONETIME ONE Administration Dextrose/Water 50 ml 01/24/21 18:52 01/24/21 19:24 50% Dextrose In Water 50 Ml Syringe IVPUSH 01/24/21 18:53 50 ml ONETIME ONE Administration Sodium Chloride 1,000 mls @ 999 mls/hr 01/24/21 17:57 01/24/21 18:23 Normal Saline IV 01/24/21 18:57 999 mls/hr .BOLUS ONE Administration Sodium Chloride 1,000 mls @ 999 mls/hr 01/24/21 18:05 01/24/21 19:31 Normal Saline IV 01/24/21 19:05 999 mls/hr .BOLUS ONE Administration Insulin Human Regular 10 unit 01/24/21 18:52 01/24/21 19:24 Insulin Regular, Human 100 Units/Ml 10 Ml Vial IVPUSH 01/24/21 18:53 10 unit ONETIME ONE Administration Protocol Sodium Polystyrene Sulfonate 45 gm 01/24/21 19:00 01/24/21 19:24 Sodium Polystyrene Sulfonate 15 Gm/60 Ml Susp 60 Ml Bot PO 01/24/21 19:01 45 gm NOW ONE Administration Departure - Departure Time of Disposition: 20:28 Condition: Good Sepsis Event Note (ED) - Focused Exam Vital Signs: Vital Signs Temp Pulse Resp BP Pulse Ox 01/24/21 16:56 97.7 F 82 18 153/100 H 97 - My Orders Last 24 Hours: My Active Orders 01/24/21 20:12 Chest 1V Frontal [CR] Stat - Assessment/Plan Last 24 Hours: My Active Orders 01/24/21 20:12 Chest 1V Frontal [CR] Stat
[2021-01-24 17:44] LABS: CARBON DIOXIDE,CO2 17.1 mmol/L (21.0-32.0)
[2021-01-24] MEDS ORDERED: Calcium Gluconate 10% 1 GM/10 ML SDV IVPUSH ONE ×2 (17:57→18:16)
[2021-01-24] MEDS ORDERED: Sodium Chloride 0.9% 1,000 ML IV ONE ×2 (17:57→18:05)
[2021-01-24] MEDS ORDERED: Acetaminophen 500 MG Tab ONE (18:08)
[2021-01-24] MEDS ORDERED: Acetaminophen 500 MG Tab PO ONE (18:10)
[2021-01-24 18:21] LABS: POTASSIUM,K 6.5 mmol/L (3.5-5.1)
[2021-01-24] MEDS ORDERED: 50% Dextrose in Water 50 ML Syringe IVPUSH PRN (18:52)
[2021-01-24] MEDS ORDERED: 50% Dextrose in Water 50 ML Syringe IVPUSH ONE (18:52)
[2021-01-24] MEDS ORDERED: Glucagon,Human Recombinant 1 MG Vial IM PRN (18:52)
[2021-01-24] MEDS ORDERED: Insulin Regular, Human 100 Units/ML 10 ML Vial IVPUSH ONE (18:52)
[2021-01-24] MEDS ORDERED: Sodium Polystyrene Sulfonate 15 GM/60 ML Susp 60 ML Bot PO ONE (19:00)
[2021-01-24 20:21] LABS: CARBON DIOXIDE,CO2 18.3 mmol/L (21.0-32.0); POTASSIUM,K 5.6 mmol/L (3.5-5.1)
--- NOTE | 2021-01-24 20:55 | CR ---
INDICATION: Elevated white count TECHNIQUE: Two view chest. FINDINGS: The lungs are clear. The heart, mediastinum and pulmonary vessels are of normal size. There is no evidence of pleural disease. Cervical fusion change. Small density in the left upper lung and right upper lung probably reflect granulomas. IMPRESSION: No acute pulmonary process. Dictated by Hedy Dumont MD @ 01/24/2021 8:52:[address] Hedy Dumont @ Jan 24 2021 8:52PM
[2021-01-24] MEDS ORDERED: Ondansetron 4 MG/2 ML SDV IVPUSH PRN (21:36)
[2021-01-24] MEDS ORDERED: Albuterol/Ipratropium 3.0-0.5 MG/3 ML Neb Soln NEB PRN (21:36)
--- NOTE | 2021-01-24 21:50 | PCM.HP.2 ---
H&P History of Present Illness - General Date of Service: 01/24/21 Admit Problem/Dx: Admission Diagnosis/Problem Admission Diagnosis/Problem Hyperkalemia - History of Present Illness Initial Comments - Free Text/Narative: Patient is a 65-year-old male with PMH of HTN who was sent in for evaluation for NOMI. His PMD states that his potassium is elevated as well as his creatinine from his baseline. Patient states that he is on lisinopril and a diuretic. He also reports he has been taking Motrin about twice a day for the past few weeks due to aches and pains in his b/l shoulders. He states that he is urinating frequently and has no difficulty with that denies abdominal pain fever chills or other complaints. Patient states he has been taking potassium supplements for past few weeks due to "leg cramps", he though his potassium was low due to him being on lasix. Patient was sent from his PCP for evaluation of hyperkalemia and renal insufficiency. Originally he sees Dr Brush but due to unavailability of appt he had to see Dr Conteh. EKG was unremarkable. Received Kayexalate, and temporixinfg measures for high K. 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 He also c/o of double vision, states few weeks back he had an episode of impaired speech and blurry vision but never came to ER, his BP was very high at home at that time.. He thinks his left eye lid is droopy than right for past few weeks. No acute focal deficits right now.. 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 Sulfa (Sulfonamide Allergy víctor Verified 01/24/21 17:04 Antibiotics) corry syndrome Home Medications: Home Meds Ascorbic Acid [Vitamin C] 500 mg PO DAILY 05/05/15 [History] Calcium/D3/Argnin/Inos/Silicon [Bone Density Calcium + D Cplt] 1 tab PO DAILY 05/05/15 [History] Cholecalciferol (Vitamin D3) [Vitamin D3] 2,000 units PO BID 05/05/15 [History] L.acidoph,Paracasei, B.lactis [Probiotic] 1 tab PO DAILYBH 05/05/15 [History] Losartan Potassium 100 mg PO DAILY 05/05/15 [History] Metoprolol Succinate [Toprol XL] 50 mg PO BEDTIME 05/05/15 [History] Multivitamin [Multivitamins] 1 tab PO DAILY 05/05/15 [History] Hondo-3 Fatty Acids [Hondo-3] 1 tab PO DAILY 05/05/15 [History] Psyllium Husk/Aspartame [Metamucil [facility] Powder] 1 dose PO DAILY 05/05/15 [History] [place]'s Wort 1 tab PO DAILY 05/05/15 [History] Vitamin B Complex 1 tab PO DAILY 05/05/15 [History] calcium polycarbophiL [Fiber Tabs] 1 tab PO DAILY 05/05/15 [History] hydroCHLOROthiazide [Hydrochlorothiazide] 12.5 mg PO DAILY 05/05/15 [History] Furosemide [Lasix] 20 mg PO DAILY PRN #30 tab 03/15/19 [Rx] Past Medical History HEENT History: Reports: None Other HEENT History: w/ hearing aid Cardiovascular History: Reports: Hypertension Respiratory History: Reports: None Other Respiratory History: former smoker Gastrointestinal History: Reports: GERD, Hepatitis Other Gastrointestinal History: hx hepatitis C (finished tx for this in 2014); occasional heartburn Genitourinary History: Reports: None Musculoskeletal History: Reports: None Neurological History: Reports: None Psychiatric History: Reports: Anxiety Endocrine/Metabolic History: Reports: Obesity/BMI 30+ Hematologic History: Reports: None Immunologic History: Reports: None Oncologic (Cancer) History: Reports: None Dermatologic History: Reports: None - Infectious Disease History Infectious Disease History: Reports: Chicken Pox, Hepatitis C, Measles, Mumps, Other (See Below) Other Infectious Disease History: treated and cleared from Hep C - Past Surgical History HEENT Surgical History: Reports: Cataract Surgery, Other (See Below) Other HEENT Surgeries/Procedures: hx sinus surgery; dental implants Cardiovascular Surgical History: Reports: None Respiratory Surgical History: Reports: None GI Surgical History: Reports: None Other Neurological Surgeries/Procedures: hx of back and neck surgery Musculoskeletal Surgical History: Reports: Carpal Tunnel Other Musculoskeletal Surgeries/Procedures:: hx of back, neck, R knee, hand and elbow surgery Social & Family History - Family History Family Medical History: No Pertinent Family History - Tobacco Use Tobacco Use Status *Q: Former Tobacco User Used Tobacco, but Quit: No - Caffeine Use Caffeine Use: Reports: Coffee - Recreational Drug Use Recreational Drug Use: No - Living Situation & Occupation Living situation: Reports: , with Family Occupation: Employed H&P Review of Systems - Review of Systems: Review Of Systems: See Below General: Denies: Fever, Chills, Malaise HEENT: Reports: Visual Changes Pulmonary: Denies: Shortness of Breath, Wheezing Cardiovascular: Denies: Chest Pain, Palpitations Gastrointestinal: Denies: Abdominal Pain, Black Stool, Bloody Stool, Difficulty Swallowing, Melena, Mucous in Stool Genitourinary: Denies: Dysuria, Frequency, Burning Musculoskeletal: Reports: Shoulder Pain. Denies: Neck Pain, Arm Pain, Back Pain, Hand Pain Skin: Denies: Cyanosis, Jaundice, Mottled Psychiatric: Denies: Confusion, Depression, Mood Lability Neurological: Reports: Change in Speech (for past few weeks) Hematologic/Lymphatic: Denies: Anemia, Easy Bleeding, Easy Bruising Exam - Exam Exam: See Below - Vital Signs Vital Signs: Last Vital Signs Temp 36.3 C 01/24/21 20:25 Pulse 95 01/24/21 20:25 Resp 18 01/24/21 20:25 BP 127/73 01/24/21 20:25 Pulse Ox 96 01/24/21 20:25 Weight: 117.934 kg - Exam General: Alert, Oriented, Cooperative HEENT: Conjunctiva Clear Neck: Supple, Trachea Midline Lungs: Clear to Auscultation, Normal Respiratory Effort Cardiovascular: Regular Rate, Regular Rhythm, Normal S1, Normal S2 GI/Abdominal Exam: Normal Bowel Sounds, Soft, Non-Tender Extremities: Normal Inspection, Normal Range of Motion. No: Leg Pain, Limited Range of Motion, Increased Warmth Skin: Warm, Intact Neurological: Normal Gait, Sensation Intact, Other (left hand strength is slighly less than right hand, slight droop in his left eye lid, no gross focal defecits). No: Hyperreflexia - Patient Data Lab Results Last 24 hrs: Laboratory Results - last 24 hr 07/20/21 07/20/21 07/20/21 Range/Units 17:08 17:08 18:50 WBC 15.46 H (4.0-11.0) K/uL RBC 4.82 (4.50-5.90) M/uL Hgb 15.1 (13.0-17.0) g/dL Hct 44.6 (38.0-50.0) % MCV 92.5 (80.0-98.0) fL MCH 31.3 (27.0-32.0) pg MCHC 33.9 (31.0-37.0) g/dL RDW Std Deviation 50.8 (28.0-62.0) fl RDW Coeff of Shantal 15 (11.0-15.0) % Plt Count 171 (150-400) K/uL MPV 9.70 (7.40-12.00) fL Neut % (Auto) 81.7 H (48.0-80.0) % Lymph % (Auto) 8.9 L (16.0-40.0) % [place]ter[place] % (Auto) 9.2 (0.0-15.0) % Eos % (Auto) 0.1 (0.0-7.0) % Baso % (Auto) 0.1 (0.0-1.5) % Neut # (Auto) 12.6 H (1.4-5.7) K/uL Lymph # (Auto) 1.4 (0.6-2.4) K/uL [place] # (Auto) 1.4 H (0.0-0.8) K/uL Eos # (Auto) 0.0 (0.0-0.7) K/uL Baso # (Auto) 0.0 (0.0-0.1) K/uL Nucleated RBC % 0.0 /100WBC Nucleated RBCs # 0 K/uL Sodium 132 L (136-148) mmol/L Potassium 6.5 H (3.5-5.1) mmol/L Chloride 105 (98-107) mmol/L Carbon Dioxide 17.1 L (21.0-32.0) mmol/L BUN 52 H (7.0-18.0) mg/dL Creatinine 1.6 H (0.8-1.3) mg/dL Est Cr Clr Drug Dosing 49.17 mL/min Estimated GFR (MDRD) 43.3 ml/min Glucose 101 (74-106) mg/dL Calcium 8.2 L (8.5-10.1) mg/dL Phosphorus 3.6 (2.6-4.7) mg/dL Magnesium 2.3 (1.8-2.4) mg/dL Total Bilirubin 0.4 (0.2-1.0) mg/dL AST 23 (15-37) IU/L ALT 70 H (14-63) IU/L Alkaline Phosphatase 34 L (46-116) U/L Creatine Kinase 94 (26-308) U/L Total Protein 7.2 (6.4-8.2) g/dL Albumin 3.7 (3.4-5.0) g/dL Globulin 3.5 (2.6-4.0) g/dL Albumin/Globulin Ratio 1.1 (0.9-1.6) Urine Color YELLOW Urine Appearance CLEAR Urine pH 6.0 (5.0-8.0) Ur Specific [place] 1.010 (1.001-1.035) Urine Protein NEGATIVE (NEGATIVE) mg/dL Urine Glucose (UA) NEGATIVE (NEGATIVE) mg/dL Urine Ketones NEGATIVE (NEGATIVE) mg/dL Urine Occult Blood TRACE-INTACT H (NEGATIVE) Urine Nitrite NEGATIVE (NEGATIVE) Urine Bilirubin NEGATIVE (NEGATIVE) Urine Urobilinogen 0.2 (<2.0) EU/dL Ur Leukocyte Esterase NEGATIVE (NEGATIVE) U Hyaline Cast (Auto) 1-3 (0-2/LPF) Urine RBC 0-2 (0-2/HPF) Urine WBC NONE SEEN (0-5/HPF) Ur Epithelial Cells OCCASIONAL (NONE-FEW) Urine Bacteria RARE (NEGATIVE) Urine Mucus LIGHT (NONE-MOD) Ur Random Creatinine mg/dL Ur Random Sodium (40.0-220.0) mmol/L 01/24/21 01/24/21 Range/Units 18:50 20:00 WBC (4.0-11.0) K/uL RBC (4.50-5.90) M/uL Hgb (13.0-17.0) g/dL Hct (38.0-50.0) % MCV (80.0-98.0) fL MCH (27.0-32.0) pg MCHC (31.0-37.0) g/dL RDW Std Deviation (28.0-62.0) fl RDW Coeff of Shantal (11.0-15.0) % Plt Count (150-400) K/uL MPV (7.40-12.00) fL Neut % (Auto) (48.0-80.0) % Lymph % (Auto) (16.0-40.0) % Oter[place] % (Auto) (0.0-15.0) % Eos % (Auto) (0.0-7.0) % Baso % (Auto) (0.0-1.5) % Neut # (Auto) (1.4-5.7) K/uL Lymph # (Auto) (0.6-2.4) K/uL [place] # (Auto) (0.0-0.8) K/uL Eos # (Auto) (0.0-0.7) K/uL Baso # (Auto) (0.0-0.1) K/uL Nucleated RBC % /100WBC Nucleated RBCs # K/uL Sodium 133 L (136-148) mmol/L Potassium 5.6 H (3.5-5.1) mmol/L Chloride 106 (98-107) mmol/L Carbon Dioxide 18.3 L (21.0-32.0) mmol/L BUN 54 H (7.0-18.0) mg/dL Creatinine 1.6 H (0.8-1.3) mg/dL Est Cr Clr Drug Dosing 49.17 mL/min Estimated GFR (MDRD) 43.3 ml/min Glucose 65 L (74-106) mg/dL Calcium 8.1 L (8.5-10.1) mg/dL Phosphorus (2.6-4.7) mg/dL Magnesium (1.8-2.4) mg/dL Total Bilirubin (0.2-1.0) mg/dL AST (15-37) IU/L ALT (14-63) IU/L Alkaline Phosphatase (46-116) U/L Creatine Kinase (26-308) U/L Total Protein (6.4-8.2) g/dL Albumin (3.4-5.0) g/dL Globulin (2.6-4.0) g/dL Albumin/Globulin Ratio (0.9-1.6) Urine Color Urine Appearance Urine pH (5.0-8.0) Ur Specific [place] (1.001-1.035) Urine Protein (NEGATIVE) mg/dL Urine Glucose (UA) (NEGATIVE) mg/dL Urine Ketones (NEGATIVE) mg/dL Urine Occult Blood (NEGATIVE) Urine Nitrite (NEGATIVE) Urine Bilirubin (NEGATIVE) Urine Urobilinogen (<2.0) EU/dL Ur Leukocyte Esterase (NEGATIVE) U Hyaline Cast (Auto) (0-2/LPF) Urine RBC (0-2/HPF) Urine WBC (0-5/HPF) Ur Epithelial Cells (NONE-FEW) Urine Bacteria (NEGATIVE) Urine Mucus (NONE-MOD) Ur Random Creatinine 29.1 mg/dL Ur Random Sodium 62.0 (40.0-220.0) mmol/L Result Diagrams: 01/24/21 17:08 01/24/21 20:00 Sepsis Event Note - Evaluation Sepsis Screening Result: No Definite Risk - Focused Exam Vital Signs: Vital Signs Temp Pulse Resp BP Pulse Ox 01/24/21 20:25 36.3 C 95 18 127/73 96 01/24/21 19:40 88 18 155/95 H 98 01/24/21 19:10 79 18 131/86 98 01/24/21 16:56 36.5 C 82 18 153/100 H 97 - Problem List (1) Acute renal injury SNOMED Code(s): 56399518, 58523878 ICD Code: N17.9 - ACUTE KIDNEY FAILURE, UNSPECIFIED Status: Acute Current Visit: Yes (2) Hyperkalemia SNOMED Code(s): 19633302 ICD Code: E87.5 - HYPERKALEMIA Status: Acute Current Visit: Yes (3) Dyslipidemia SNOMED Code(s): 579720635 ICD Code: E78.5 - HYPERLIPIDEMIA, UNSPECIFIED Status: Acute Current V isit: No (4) History of hepatitis C SNOMED Code(s): 28913711976487, 40446897142643 ICD Code: Z86.19 - PERSONAL HISTORY OF OTHER INFECTIOUS AND PARASITIC DISEASES Status: Acute Current Visit: No (5) Obesity (BMI 30-39.9) SNOMED Code(s): 533144861, 059612454 ICD Code: E66.9 - OBESITY, UNSPECIFIED Status: Acute Current Visit: No (6) Anxiety SNOMED Code(s): 40471298 ICD Code: F41.9 - ANXIETY DISORDER, UNSPECIFIED Status: Chronic Priority: High Current Visit: No (7) Leukocytosis (leucocytosis) SNOMED Code(s): 791018838, 803055589 ICD Code: D72.829 - ELEVATED WHITE BLOOD CELL COUNT, UNSPECIFIED Status: Acute Current Visit: Yes Problem List Initiated/Reviewed/Updated: Yes Orders Last 24hrs: Active Orders 24 hr Category Date Time Status Patient Status [ADT] Routine ADT 01/24/21 20:27 Active Ambulate [RC] ASDIRECTED Care 01/24/21 21:36 Active Antiembolic Devices [RC] PER UNIT ROUTINE Care 01/24/21 21:37 Active Oxygen Therapy [RC] PRN Care 01/24/21 21:36 Active RT Aerosol Therapy [RC] ASDIRECTED Care 01/24/21 21:37 Active VTE/DVT Education [RC] PER UNIT ROUTINE Care 01/24/21 21:36 Active Vital Signs [RC] Q4H Care 01/24/21 21:36 Active Heart Healthy Diet [DIET] Diet 01/24/21 Dinner Active Abdomen Ltd [US] Routine Exams 01/24/21 21:49 Ordered CORONAVIRUS COVID-19 RAJIV [MOLEC] Stat Lab 01/24/21 19:01 Ordered OSMOLALITY - SERUM [REF] Stat Lab 01/24/21 18:02 Received OSMOLALITY - URINE Stat Lab 01/24/21 18:50 Received UREA NITROGEN, URINE Stat Lab 01/24/21 18:50 Received URIC ACID, URINE Stat Lab 01/24/21 18:50 Received Acetaminophen [TylenoL] Med 01/24/21 21:36 Active 650 mg PO Q4H PRN Albuterol/Ipratropium [DuoNeb 3.0-0.5 MG/3 ML] Med 01/24/21 21:36 Ordered 3 ml NEB Q4HRRT PRN Dextrose 50% in Water Med 01/24/21 18:52 Active 50 ml IVPUSH ASDIRECTED PRN Glucagon,Human Recombinant [GlucaGen] Med 01/24/21 18:52 Active 1 mg IM ASDIRECTED PRN Heparin Sodium Med 01/24/21 22:00 Active 5,000 units SUBCUT Q8H Lactated Ringers [Ringers, Lactated] 1,000 ml Med 01/24/21 21:45 Active IV ASDIRECTED Ondansetron [Zofran] Med 01/24/21 21:36 Active 4 mg IVPUSH Q4H PRN Sequential Compression Device [OM.PC] Per Unit Routine Oth 01/24/21 21:36 Ordered Medication Orders Acetaminophen (Acetaminophen 325 Mg Tab) 650 mg PO Q4H PRN PRN Reason: Pain (Mild 1-3)/fever Albuterol/Ipratropium (Albuterol/Ipratropium 3.0-0.5 Mg/3 Ml Neb Soln) 3 ml NEB Q4HRRT PRN PRN Reason: Shortness Of Breath/wheezing Dextrose/Water (50% Dextrose In Water 50 Ml Syringe) 50 ml IVPUSH ASDIRECTED PRN PRN Reason: Hypoglycemia Glucagon (Glucagon,Human Recombinant 1 Mg Vial) 1 mg IM ASDIRECTED PRN PRN Reason: Hypoglycemia Heparin Sodium (Porcine) (Heparin Sodium 5,000 Units/Ml Vial) 5,000 units SUBCUT Q8H NOEL Lactated Ringer's (Ringers, Lactated) 1,000 mls @ 125 mls/hr IV ASDIRECTED NOEL Ondansetron HCl (Ondansetron 4 Mg/2 Ml Sdv) 4 mg IVPUSH Q4H PRN PRN Reason: Nausea/Vomiting Assessment/Plan Comment:: 65 y/o M admitted for NOMI, hyperkalemia cont IV fluids NOMI likely intrarenal hold nephrotoxic meds may have to dc MELVIN/ARB low K diet Leucocytosis, no source identified,reactive? recheck CBC in AM recheck BMP in AM Obtain USG kidney DuoNEbs as needed Tylenol for pain, no NSAIDs History suggests possible stroke few weeks back, MRI outpatient basis wiill risk stratify check lipids, TSH, HbA1c
[2021-01-24] MEDS: Heparin Sodium 5,000 Units/ML Vial SUBCUT SCH (22:06)
[2021-01-24] MEDS: Lactated Ringers 1,000 ML IV SCH (22:16)
[2021-01-24] MEDS: Acetaminophen 325 MG Tab PO PRN (23:49)
[2021-01-25] MEDS: Acetaminophen 325 MG Tab PO PRN (05:01)
[2021-01-25] MEDS: Lactated Ringers 1,000 ML IV SCH (06:25)
[2021-01-25] MEDS: Heparin Sodium 5,000 Units/ML Vial SUBCUT SCH (06:29)
[2021-01-25] MEDS ORDERED: Morphine 2 MG/ML SYRINGE IVPUSH ONE (06:42)
[2021-01-25] MEDS ORDERED: Acetaminophen/oxyCODONE 325-5 MG Tab PO PRN (06:43)
[2021-01-25 06:49] LABS: HEMOGLOBIN A1C 5.9 %
[2021-01-25 07:01] LABS: CARBON DIOXIDE,CO2 18.1 mmol/L (21.0-32.0); POTASSIUM,K 5.9 mmol/L (3.5-5.1)
[2021-01-25] MEDS ORDERED: Metoprolol Succinate 50 MG Tab.ER PO SCH ×2 (09:00→21:00)
[2021-01-25] MEDS ORDERED: Cholecalciferol (Vitamin D3) 25 MCG Tab PO SCH (09:00)
[2021-01-25] MEDS ORDERED: Fish Oil/Omega-3 Fatty Acids 1 Gm Cap PO SCH (09:00)
[2021-01-25 09:04] VITALS: PULSE 85
[2021-01-25] MEDS ORDERED: Sodium Polystyrene Sulfonate 15 GM/60 ML Susp 60 ML Bot PO ONE ×2 (12:19→13:00)
--- NOTE | 2021-01-25 13:00 | US ---
INDICATION: Elevated creatinine positive blood in urine TECHNIQUE: Ultrasound renal and bladder complete. Miguel-scale and color Doppler sonographic images were acquired of the kidneys and urinary bladder. COMPARISON: None FINDINGS: Right kidney: 11.6 x 7.6 x 7.1 cm. Left kidney: 10.8 x 4.7 x 6.0 cm. Normal echotexture and cortex. There is a 2 centimeter cyst within the right kidney otherwise there is no shadowing calculus, hydronephrosis or mass. Bladder: Normal in caliber and appearance. Color Doppler images demonstrate bilateral ureteral jets. IMPRESSION: Cystic changes of the right kidney, otherwise unremarkable renal ultrasound. Dictated by Mack Mendoza MD @ 01/25/2021 12:59:[address] Mack Mendoza @ Jan 25 2021 12:59PM
--- NOTE | 2021-01-25 13:42 | PCM.DCSUM1 ---
Discharge Summary - Hospital Course Free Text/Narrative:: Patient is a 65-year-old male with PMH of HTN who was sent in for evaluation for NOMI. His PMD states that his potassium is elevated as well as his creatinine from his baseline. Patient states that he is on lisinopril and a diuretic. He also reports he has been taking Motrin about twice a day for the past few weeks due to aches and pains in his b/l shoulders. He states that he is urinating frequently and has no difficulty with that denies abdominal pain fever chills or other complaints. Patient states he has been taking potassium supplements for past few weeks due to "leg cramps", he though his potassium was low due to him being on lasix. Patient was sent from his PCP for evaluation of hyperkalemia and renal insufficiency. Originally he sees Dr Brush but due to unavailability of appt he had to see Dr Conteh. EKG was unremarkable. 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 He also c/o of double vision, states few weeks back he had an episode of impaired speech and blurry vision but never came to ER, his BP was very high at home at that time.. He thinks his left eye lid is droopy than right for past few weeks. No acute focal deficits. Patient was admitted to the hospital for management of NOMI and hyperkalemia. Repeat BMP that evening showed improvement in potassium. Patient was started on IV fluids, nephrotoxic medications including his MELVIN/ARB meds were held. Patient also had leukocytosis but there was no identifiable source, UA was clean chest x-ray did not show any pneumonia. Urine did show some occult blood as a result ultrasound of the kidney was obtained which showed cystic changes of the right kidney, otherwise unremarkable renal ultrasound. Lab work next day showed resolution of the white count, UTI had resolved as well, potassium was slightly elevated at 5.9. Patient received another dose Kayexalate, given patient's left eye droopiness for the past several weeks it was recommended to get an MRI of the brain, patient states that he cannot tolerate closed MRI and was given a prescription to obtain MRI on outpatient basis at a place where they can accommodate open-air MRI. Given immediate unavailability at Dr. Low's office for a follow-up appointment patient requested to be seen by Dr. Burger. Patient was thoroughly counseled about usage of potassium supplements without medical supervision as he is on medications for his blood pressure control that can also contribute to his hyperkalemia. Upon reviewing the chart it looks like patient does not tolerate a lot of other antihypertensives so I was not able to take patient off the MELVIN or ARB but I did strongly recommend patient to stop taking any supplements without adequate supervision as that would result in dangerously high potassium levels. Repeat BMP check was recommended to ensure resolution of hyperkalemia and script was provided, the results of which will be forwarded to patient's primary care doctor. Patient was hemodynamically stable for discharge and recommended to follow-up with primary care doctor upon discharge. Diagnosis: Stroke: No - Discharge Data Discharge Date: 01/25/21 Discharge Disposition: Home, Self-Care 01 Condition: Good - Referral to Home Health Primary Care Physician: Simon Conteh MD - Discharge Diagnosis/Problem(s) (1) Acute renal injury SNOMED Code(s): 57193968, 44507470 ICD Code: N17.9 - ACUTE KIDNEY FAILURE, UNSPECIFIED Status: Acute (2) Hyperkalemia SNOMED Code(s): 24938861 ICD Code: E87.5 - HYPERKALEMIA Status: Acute (3) Dyslipidemia SNOMED Code(s): 310055020 ICD Code: E78.5 - HYPERLIPIDEMIA, UNSPECIFIED Status: Acute (4) History of hepatitis C SNOMED Code(s): 81657864012837, 01424296972255 ICD Code: Z86.19 - PERSONAL HISTORY OF OTHER INFECTIOUS AND PARASITIC DISEASES Status: Acute (5) Obesity (BMI 30-39.9) SNOMED Code(s): 104813005, 896105291 ICD Code: E66.9 - OBESITY, UNSPECIFIED Status: Acute (6) Anxiety SNOMED Code(s): 97514488 ICD Code: F41.9 - ANXIETY DISORDER, UNSPECIFIED Status: Chronic Priority: High (7) Leukocytosis (leucocytosis) SNOMED Code(s): 059922145, 133129554 ICD Code: D72.829 - ELEVATED WHITE BLOOD CELL COUNT, UNSPECIFIED Status: Acute (8) Diplopia SNOMED Code(s): 10703906 ICD Code: H53.2 - DIPLOPIA Status: Acute - Discharge Plan *PRESCRIPTION DRUG MONITORING PROGRAM REVIEWED*: No *COPY OF PRESCRIPTION DRUG MONITORING REPORT IN PATIENT FRITZ: No Prescriptions/Med Rec: Acetaminophen/oxyCODONE [Percocet 325-5 MG] 1 tab PO Q8H PRN #15 tablet PRN Reason: Pain (Moderate 4-6) Home Medications: Home Meds Cholecalciferol (Vitamin D3) [Vitamin D3] 2,000 units PO BID 05/05/15 [History] L.acidoph,Paracasei, B.lactis [Probiotic] 1 tab PO DAILYBH 05/05/15 [History] Metoprolol Succinate [Toprol XL] 50 mg PO BEDTIME 05/05/15 [History] Multivitamin [Multivitamins] 1 tab PO DAILY 05/05/15 [History] Tyler-3 Fatty Acids [Tyler-3] 1 tab PO DAILY 05/05/15 [History] Psyllium Husk/Aspartame [Metamucil [facility] Powder] 1 dose PO DAILY 05/05/15 [History] Vitamin B Complex 1 tab PO DAILY 05/05/15 [History] Acetaminophen/oxyCODONE [Percocet 325-5 MG] 1 tab PO Q8H PRN #15 tablet 01/25/21 [Rx] Chlorthalidone 75 mg PO DAILY 01/25/21 [History] Spironolactone 50 mg PO DAILY 01/25/21 [History] Valsartan 320 mg PO DAILY 01/25/21 [History] Patient Handouts: Acetaminophen; Oxycodone tablets, Hyperkalemia, [id number] Referrals: Simon Conteh MD [Primary Care Provider] - 01/27/21 9:30 am - Discharge Summary/Plan Comment DC Time >30 min.: Yes - Patient Data Vitals - Most Recent: Last Vital Signs Temp 36.7 C 01/25/21 09:00 Pulse 85 01/25/21 08:58 Resp 18 01/25/21 09:00 BP 142/75 H 01/25/21 09:00 Pulse Ox 97 01/25/21 09:00 Weight - Most Recent: 122.606 kg I&O - Last 24 hours: Intake & Output 01/24/21 01/25/21 01/25/21 22:59 06:59 14:59 Intake Total 2367 Output Total 1630 Balance 737 Lab Results - Last 24 hrs: Laboratory Results - last 24 hr 01/24/21 01/24/21 01/24/21 Range/Units 17:08 17:08 18:50 WBC 15.46 H (4.0-11.0) K/uL RBC 4.82 (4.50-5.90) M/uL Hgb 15.1 (13.0-17.0) g/dL Hct 44.6 (38.0-50.0) % MCV 92.5 (80.0-98.0) fL MCH 31.3 (27.0-32.0) pg MCHC 33.9 (31.0-37.0) g/dL RDW Std Deviation 50.8 (28.0-62.0) fl RDW Coeff of Shantal 15 (11.0-15.0) % Plt Count 171 (150-400) K/uL MPV 9.70 (7.40-12.00) fL Neut % (Auto) 81.7 H (48.0-80.0) % Lymph % (Auto) 8.9 L (16.0-40.0) % Franklin % (Auto) 9.2 (0.0-15.0) % Eos % (Auto) 0.1 (0.0-7.0) % Baso % (Auto) 0.1 (0.0-1.5) % Neut # (Auto) 12.6 H (1.4-5.7) K/uL Lymph # (Auto) 1.4 (0.6-2.4) K/uL Franklin # (Auto) 1.4 H (0.0-0.8) K/uL Eos # (Auto) 0.0 (0.0-0.7) K/uL Baso # (Auto) 0.0 (0.0-0.1) K/uL Nucleated RBC % 0.0 /100WBC Nucleated RBCs # 0 K/uL Sodium 132 L (136-148) mmol/L Potassium 6.5 H (3.5-5.1) mmol/L Chloride 105 (98-107) mmol/L Carbon Dioxide 17.1 L (21.0-32.0) mmol/L BUN 52 H (7.0-18.0) mg/dL Creatinine 1.6 H (0.8-1.3) mg/dL Est Cr Clr Drug Dosing 49.17 mL/min Estimated GFR (MDRD) 43.3 ml/min Glucose 101 (74-106) mg/dL Hemoglobin A1c (4.5 - 6.2) % Calcium 8.2 L (8.5-10.1) mg/dL Phosphorus 3.6 (2.6-4.7) mg/dL Magnesium 2.3 (1.8-2.4) mg/dL Total Bilirubin 0.4 (0.2-1.0) mg/dL AST 23 (15-37) IU/L ALT 70 H (14-63) IU/L Alkaline Phosphatase 34 L (46-116) U/L Creatine Kinase 94 (26-308) U/L Total Protein 7.2 (6.4-8.2) g/dL Albumin 3.7 (3.4-5.0) g/dL Globulin 3.5 (2.6-4.0) g/dL Albumin/Globulin Ratio 1.1 (0.9-1.6) Triglycerides (0-200) mg/dL Cholesterol (50-200) mg/dL LDL Cholesterol, Calc (60-180) mg/dL VLDL Cholesterol (5-55) mg/dL HDL Cholesterol (40-60) mg/dL Cholesterol/HDL Ratio (3.3-6.0) Free T4 (0.76-1.46) ng/dL TSH, Ultra Sensitive (0.36-3.74) uIU/mL Urine Color YELLOW Urine Appearance CLEAR Urine pH 6.0 (5.0-8.0) Ur Specific Anderson 1.010 (1.001-1.035) Urine Protein NEGATIVE (NEGATIVE) mg/dL Urine Glucose (UA) NEGATIVE (NEGATIVE) mg/dL Urine Ketones NEGATIVE (NEGATIVE) mg/dL Urine Occult Blood TRACE-INTACT H (NEGATIVE) Urine Nitrite NEGATIVE (NEGATIVE) Urine Bilirubin NEGATIVE (NEGATIVE) Urine Urobilinogen 0.2 (<2.0) EU/dL Ur Leukocyte Esterase NEGATIVE (NEGATIVE) U Hyaline Cast (Auto) 1-3 (0-2/LPF) Urine RBC 0-2 (0-2/HPF) Urine WBC NONE SEEN (0-5/HPF) Ur Epithelial Cells OCCASIONAL (NONE-FEW) Urine Bacteria RARE (NEGATIVE) Urine Mucus LIGHT (NONE-MOD) Ur Random Creatinine mg/dL Ur Random Sodium (40.0-220.0) mmol/L 01/24/21 01/24/21 01/25/21 Range/Units 18:50 20:00 05:55 WBC (4.0-11.0) K/uL RBC (4.50-5.90) M/uL Hgb (13.0-17.0) g/dL Hct (38.0-50.0) % MCV (80.0-98.0) fL MCH (27.0-32.0) pg MCHC (31.0-37.0) g/dL RDW Std Deviation (28.0-62.0) fl RDW Coeff of Shantal (11.0-15.0) % Plt Count (150-400) K/uL MPV (7.40-12.00) fL Neut % (Auto) (48.0-80.0) % Lymph % (Auto) (16.0-40.0) % Franklin % (Auto) (0.0-15.0) % Eos % (Auto) (0.0-7.0) % Baso % (Auto) (0.0-1.5) % Neut # (Auto) (1.4-5.7) K/uL Lymph # (Auto) (0.6-2.4) K/uL Franklin # (Auto) (0.0-0.8) K/uL Eos # (Auto) (0.0-0.7) K/uL Baso # (Auto) (0.0-0.1) K/uL Nucleated RBC % /100WBC Nucleated RBCs # K/uL Sodium 133 L 137 (136-148) mmol/L Potassium 5.6 H 5.9 H (3.5-5.1) mmol/L Chloride 106 109 H (98-107) mmol/L Carbon Dioxide 18.3 L 18.1 L (21.0-32.0) mmol/L BUN 54 H 43 H (7.0-18.0) mg/dL Creatinine 1.6 H 1.3 (0.8-1.3) mg/dL Est Cr Clr Drug Dosing 49.17 60.52 mL/min Estimated GFR (MDRD) 43.3 55.1 ml/min Glucose 65 L 113 H (74-106) mg/dL Hemoglobin A1c (4.5 - 6.2) % Calcium 8.1 L 7.8 L (8.5-10.1) mg/dL Phosphorus 3.5 (2.6-4.7) mg/dL Magnesium 2.1 (1.8-2.4) mg/dL Total Bilirubin (0.2-1.0) mg/dL AST (15-37) IU/L ALT (14-63) IU/L Alkaline Phosphatase (46-116) U/L Creatine Kinase (26-308) U/L Total Protein (6.4-8.2) g/dL Albumin (3.4-5.0) g/dL Globulin (2.6-4.0) g/dL Albumin/Globulin Ratio (0.9-1.6) Triglycerides 93 (0-200) mg/dL Cholesterol 109 (50-200) mg/dL LDL Cholesterol, Calc 52 L (60-180) mg/dL VLDL Cholesterol 18 (5-55) mg/dL HDL Cholesterol 38 L (40-60) mg/dL Cholesterol/HDL Ratio 2.9 L (3.3-6.0) Free T4 0.85 (0.76-1.46) ng/dL TSH, Ultra Sensitive 0.35 L (0.36-3.74) uIU/mL Urine Color Urine Appearance Urine pH (5.0-8.0) Ur Specific Anderson (1.001-1.035) Urine Protein (NEGATIVE) mg/dL Urine Glucose (UA) (NEGATIVE) mg/dL Urine Ketones (NEGATIVE) mg/dL Urine Occult Blood (NEGATIVE) Urine Nitrite (NEGATIVE) Urine Bilirubin (NEGATIVE) Urine Urobilinogen (<2.0) EU/dL Ur Leukocyte Esterase (NEGATIVE) U Hyaline Cast (Auto) (0-2/LPF) Urine RBC (0-2/HPF) Urine WBC (0-5/HPF) Ur Epithelial Cells (NONE-FEW) Urine Bacteria (NEGATIVE) Urine Mucus (NONE-MOD) Ur Random Creatinine 29.1 mg/dL Ur Random Sodium 62.0 (40.0-220.0) mmol/L 01/25/21 01/25/21 Range/Units 05:55 05:55 WBC 10.86 (4.0-11.0) K/uL RBC 4.33 L (4.50-5.90) M/uL Hgb 13.2 (13.0-17.0) g/dL Hct 39.8 (38.0-50.0) % MCV 91.9 (80.0-98.0) fL MCH 30.5 (27.0-32.0) pg MCHC 33.2 (31.0-37.0) g/dL RDW Std Deviation 50.8 (28.0-62.0) fl RDW Coeff of Shantal 15 (11.0-15.0) % Plt Count 128 L (150-400) K/uL MPV 9.60 (7.40-12.00) fL Neut % (Auto) 80.5 H (48.0-80.0) % Lymph % (Auto) 9.7 L (16.0-40.0) % Franklin % (Auto) 9.6 (0.0-15.0) % Eos % (Auto) 0.2 (0.0-7.0) % Baso % (Auto) 0.0 (0.0-1.5) % Neut # (Auto) 8.8 H (1.4-5.7) K/uL Lymph # (Auto) 1.1 (0.6-2.4) K/uL Franklin # (Auto) 1.0 H (0.0-0.8) K/uL Eos # (Auto) 0.0 (0.0-0.7) K/uL Baso # (Auto) 0.0 (0.0-0.1) K/uL Nucleated RBC % 0.0 /100WBC Nucleated RBCs # 0 K/uL Sodium (136-148) mmol/L Potassium (3.5-5.1) mmol/L Chloride (98-107) mmol/L Carbon Dioxide (21.0-32.0) mmol/L BUN (7.0-18.0) mg/dL Creatinine (0.8-1.3) mg/dL Est Cr Clr Drug Dosing mL/min Estimated GFR (MDRD) ml/min Glucose (74-106) mg/dL Hemoglobin A1c 5.9 (4.5 - 6.2) % Calcium (8.5-10.1) mg/dL Phosphorus (2.6-4.7) mg/dL Magnesium (1.8-2.4) mg/dL Total Bilirubin (0.2-1.0) mg/dL AST (15-37) IU/L ALT (14-63) IU/L Alkaline Phosphatase (46-116) U/L Creatine Kinase (26-308) U/L Total Protein (6.4-8.2) g/dL Albumin (3.4-5.0) g/dL Globulin (2.6-4.0) g/dL Albumin/Globulin Ratio (0.9-1.6) Triglycerides (0-200) mg/dL Cholesterol (50-200) mg/dL LDL Cholesterol, Calc (60-180) mg/dL VLDL Cholesterol (5-55) mg/dL HDL Cholesterol (40-60) mg/dL Cholesterol/HDL Ratio (3.3-6.0) Free T4 (0.76-1.46) ng/dL TSH, Ultra Sensitive (0.36-3.74) uIU/mL Urine Color Urine Appearance Urine pH (5.0-8.0) Ur Specific Anderson (1.001-1.035) Urine Protein (NEGATIVE) mg/dL Urine Glucose (UA) (NEGATIVE) mg/dL Urine Ketones (NEGATIVE) mg/dL Urine Occult Blood (NEGATIVE) Urine Nitrite (NEGATIVE) Urine Bilirubin (NEGATIVE) Urine Urobilinogen (<2.0) EU/dL Ur Leukocyte Esterase (NEGATIVE) U Hyaline Cast (Auto) (0-2/LPF) Urine RBC (0-2/HPF) Urine WBC (0-5/HPF) Ur Epithelial Cells (NONE-FEW) Urine Bacteria (NEGATIVE) Urine Mucus (NONE-MOD) Ur Random Creatinine mg/dL Ur Random Sodium (40.0-220.0) mmol/L Med Orders - Current: Current Medications Acetaminophen (Acetaminophen 325 Mg Tab) 650 mg PO Q4H PRN PRN Reason: Pain (Mild 1-3)/fever Last Admin: 01/25/21 05:01 Dose: 650 mg Documented by: Albuterol/Ipratropium (Albuterol/Ipratropium 3.0-0.5 Mg/3 Ml Neb Soln) 3 ml NEB Q4HRRT PRN PRN Reason: Shortness Of Breath/wheezing Cholecalciferol (Cholecalciferol (Vitamin D3) 25 Mcg Tab) 50 mcg PO BID [facility] Last Admin: 01/25/21 08:58 Dose: 50 mcg Documented by: Dextrose/Water (50% Dextrose In Water 50 Ml Syringe) 50 ml IVPUSH ASDIRECTED PRN PRN Reason: Hypoglycemia Fish Oil (Fish Oil/Tyler-3 Fatty Acids 1 Gm Cap) 1 gm PO DAILY [facility] Last Admin: 01/25/21 08:58 Dose: 1 gm Documented by: Glucagon (Glucagon,Human Recombinant 1 Mg Vial) 1 mg IM ASDIRECTED PRN PRN Reason: Hypoglycemia Heparin Sodium (Porcine) (Heparin Sodium 5,000 Units/Ml Vial) 5,000 units SUBCUT Q8H [facility] Last Admin: 01/25/21 06:29 Dose: 5,000 units Documented by: Lactated Ringer's (Ringers, Lactated) 1,000 mls @ 125 mls/hr IV ASDIRECTED [facility] Last Admin: 01/25/21 06:25 Dose: 125 mls/hr Documented by: Metoprolol Succinate (Metoprolol Succinate 50 Mg Tab.Er) 50 mg PO DAILY [facility] Last Admin: 01/25/21 08:58 Dose: 50 mg Documented by: Ondansetron HCl (Ondansetron 4 Mg/2 Ml Sdv) 4 mg IVPUSH Q4H PRN PRN Reason: Nausea/Vomiting Oxycodone/Acetaminophen (Acetaminophen/Oxycodone 325-5 Mg Tab) 1 tab PO Q4H PRN PRN Reason: Pain (moderate 4-6) Discontinued Medications Acetaminophen (Acetaminophen 500 Mg Tab) 1,000 mg PO ONETIME ONE Stop: 01/24/21 18:11 Last Admin: 01/24/21 19:26 Dose: 1,000 mg Documented by: Acetaminophen (Acetaminophen 500 Mg Tab) Confirm Administered Dose 1,000 mg .ROUTE .STK-MED ONE Stop: 01/24/21 18:09 Last Admin: 01/24/21 19:23 Dose: Not Given Documented by: Calcium Gluconate (Calcium Gluconate 10% 1 Gm/10 Ml Sdv) 1 gm IVPUSH ONETIME ONE Stop: 01/24/21 18:17 Last Admin: 01/24/21 18:25 Dose: 1 gm Documented by: Dextrose/Water (50% Dextrose In Water 50 Ml Syringe) 50 ml IVPUSH ONETIME ONE Stop: 01/24/21 18:53 Last Admin: 01/24/21 19:24 Dose: 50 ml Documented by: Sodium Chloride (Normal Saline) 1,000 mls @ 999 mls/hr IV .BOLUS ONE Stop: 01/24/21 18:57 Last Admin: 01/24/21 18:23 Dose: 999 mls/hr Documented by: Sodium Chloride (Normal Saline) 1,000 mls @ 999 mls/hr IV .BOLUS ONE Stop: 01/24/21 19:05 Last Admin: 01/24/21 19:31 Dose: 999 mls/hr Documented by: Insulin Human Regular (Insulin Regular, Human 100 Units/Ml 10 Ml Vial) 10 unit IVPUSH ONETIME ONE; Protocol Stop: 01/24/21 18:53 Last Admin: 01/24/21 19:24 Dose: 10 unit Documented by: Metoprolol Succinate (Metoprolol Succinate 50 Mg Tab.Er) 50 mg PO BEDTIME NOEL Morphine Sulfate (Morphine 2 Mg/Ml Syringe) 2 mg IVPUSH ONETIME ONE Stop: 01/25/21 06:43 Last Admin: 01/25/21 06:57 Dose: 2 mg Documented by: Sodium Polystyrene Sulfonate (Sodium Polystyrene Sulfonate 15 Gm/60 Ml Susp 60 Ml Bot) 45 gm PO NOW ONE Stop: 01/24/21 19:01 Last Admin: 01/24/21 19:24 Dose: 45 gm Documented by: Sodium Polystyrene Sulfonate (Sodium Polystyrene Sulfonate 15 Gm/60 Ml Susp 60 Ml Bot) 45 gm PO NOW ONE Stop: 01/25/21 12:20 Sodium Polystyrene Sulfonate (Sodium Polystyrene Sulfonate 15 Gm/60 Ml Susp 60 Ml Bot) 30 gm PO ONETIME ONE Stop: 01/25/21 13:01
[2021-01-25 14:34] VITALS: BP 138/68
== END 2021-01-25 14:05 | disposition home or self-care (01) ==
LOC: MW.ED 16:45 → MW.ICU 20:27 → MW.ED 21:10
PROVIDERS: ADMIT Student in an Organized Health Care Education/Training Program; ATTEND Student in an Organized Health Care Education/Training Program
DX: N17.9 Acute kidney failure, unspecified (principal); E87.5 Hyperkalemia; I10 Essential (primary) hypertension; R35.0 Frequency of micturition; F41.9 Anxiety disorder, unspecified; D72.829 Elevated white blood cell count, unspecified; E66.9 Obesity, unspecified; Z68.36 Body mass index [BMI] 36.0-36.9, adult; Z88.2 Allergy status to sulfonamides; Z88.8 Allergy status to other drugs, medicaments and biological substances; Z87.891 Personal history of nicotine dependence; Z79.899 Other long term (current) drug therapy
CPT/HCPCS: 36415; 71045; 76775; 80048; 80053; 80061; 81001; 82550; 82570; 83036; 83735; 83930; 83935; 84100; 84300; 84439; 84443; 84540; 84560; 85025; 93005; 96374; 96375; 99285; A9270; J0610; J1644; J2270; J7030; J7120; J1815-GY

== ENCOUNTER 2021-08-15 17:53 | Observation (INO) | payer MEDICARE, OTHER ==
[2021-08-15] MEDS ORDERED: Furosemide 40 MG/4 ML VIAL IVPUSH ONE (18:10)
[2021-08-15 19:21] LABS: BLOOD UREA NITROGEN,BUN 63 mg/dL (7.0-18.0); CARBON DIOXIDE,CO2 27.6 mmol/L (21.0-32.0); CHLORIDE,CL 93 mmol/L (98-107); GLUCOSE RANDOM 110 mg/dL (74-106); POTASSIUM,K 2.7 mmol/L (3.5-5.1); SODIUM,NA 131 mmol/L (136-148)
[2021-08-15] MEDS ORDERED: Potassium Chloride Riders 40 MEQ in Premix Bag 1 BAG IV ONE (20:10)
[2021-08-15] MEDS ORDERED: Sodium Chloride 0.9% 500 ML IV STA (20:30)
[2021-08-15] MEDS ORDERED: Acetaminophen 325 MG Tab PO PRN (23:33)
[2021-08-15] MEDS ORDERED: Albuterol/Ipratropium 3.0-0.5 MG/3 ML Neb Soln NEB PRN (23:40)
[2021-08-15] MEDS ORDERED: Ondansetron 4 MG/2 ML SDV IVPUSH PRN (23:42)
[2021-08-15] MEDS ORDERED: Magnesium Sulfate/Water 2 GM in Premix Bag 1 BAG IV ONE (23:59)
[2021-08-16] MEDS ORDERED: Metoprolol Succinate 50 MG Tab.ER PO SCH (00:20)
[2021-08-16] MEDS ORDERED: Melatonin 3 MG Tab PO SCH (01:00)
[2021-08-16] MEDS ORDERED: Potassium Chloride Riders 40 MEQ in Premix Bag 1 BAG IV ONE ×2 (01:00→03:30)
[2021-08-16] MEDS ORDERED: Melatonin 3 MG Tab PO ONE (01:30)
[2021-08-16] MEDS: guaiFENesin/Dextromethorphan 100-10 MG/5 ML Soln 10 ML Cup PO PRN ×2 (01:34→11:23)
[2021-08-16 07:17] LABS: CARBON DIOXIDE,CO2 30.1 mmol/L (21.0-32.0); POTASSIUM,K 3.5 mmol/L (3.5-5.1)
[2021-08-16] MEDS ORDERED: Vitamin B Complex Cap PO SCH (09:00)
[2021-08-16] MEDS ORDERED: Multivitamin Tab PO SCH (09:00)
[2021-08-16] MEDS ORDERED: Fish Oil/Omega-3 Fatty Acids 1 Gm Cap PO SCH (09:00)
[2021-08-16] MEDS ORDERED: Acidophilus with Citrus Pectin Tab PO SCH (09:00)
[2021-08-16] MEDS ORDERED: Cholecalciferol (Vitamin D3) 25 MCG Tab PO SCH (09:00)
[2021-08-16] MEDS ORDERED: Enoxaparin 40 MG/0.4 ML Syringe SUBCUT SCH (09:00)
[2021-08-16 11:26] VITALS: BP 125/68; PULSE 79
== END 2021-08-16 12:50 | disposition home or self-care (01) ==
LOC: MW.ED 17:53 → MW.MS 20:17
PROVIDERS: ADMIT Student in an Organized Health Care Education/Training Program; ATTEND Student in an Organized Health Care Education/Training Program
DX: E87.6 Hypokalemia (principal); R09.02 Hypoxemia; U07.1 COVID-19; E83.42 Hypomagnesemia; E87.1 Hypo-osmolality and hyponatremia; I10 Essential (primary) hypertension; K21.9 Gastro-esophageal reflux disease without esophagitis; E66.9 Obesity, unspecified; F41.9 Anxiety disorder, unspecified; I25.10 Atherosclerotic heart disease of native coronary artery without angina pectoris; Z88.2 Allergy status to sulfonamides; Z88.8 Allergy status to other drugs, medicaments and biological substances; Z88.1 Allergy status to other antibiotic agents; Z79.899 Other long term (current) drug therapy; Z87.891 Personal history of nicotine dependence; Z98.890 Other specified postprocedural states; Z86.19 Personal history of other infectious and parasitic diseases; Z68.36 Body mass index [BMI] 36.0-36.9, adult
CPT/HCPCS: 36415; 71045; 80048; 80053; 83735; 83880; 84100; 84484; 85025; 93005; 96365; 96366; 96367; 96372; 96375; 99285; A9270; G0378; J1650; J1940; J3475; J3480; J7040; U0002

== ENCOUNTER 2023-07-15 10:33 | Day surgery (SDC) | payer MEDICARE, OTHER ==
[~2023-07-15 10:33] MED LIST: Lactated Ringers 1,000 ML IV SCH
[2023-07-15] MEDS ORDERED: propofoL 50 ML ONE (12:25)
[2023-07-15] MEDS ORDERED: Lactated Ringers 1,000 ML IV SCH (13:00)
[2023-07-15 13:30] VITALS: BP 148/85; PULSE 83
== END 2023-07-15 13:36 | disposition home or self-care (01) ==
LOC: MW.SDS 10:33
PROVIDERS: ATTEND Surgery
DX: Z12.11 Encounter for screening for malignant neoplasm of colon (principal); D12.2 Benign neoplasm of ascending colon; K57.30 Diverticulosis of large intestine without perforation or abscess without bleeding; J44.9 Chronic obstructive pulmonary disease, unspecified; K42.9 Umbilical hernia without obstruction or gangrene; I10 Essential (primary) hypertension; Z79.899 Other long term (current) drug therapy; Z98.890 Other specified postprocedural states; Z87.891 Personal history of nicotine dependence; Z88.8 Allergy status to other drugs, medicaments and biological substances; Z88.2 Allergy status to sulfonamides
CPT/HCPCS: 45380; J2704; J7120

== ENCOUNTER 2024-05-18 16:27 | Emergency (ER) | payer MEDICARE, OTHER ==
[2024-05-18 17:19] LABS: BASOPHILS ABSOLUTE AUTO 0.08 K/uL (0.00-0.20); BASOPHILS PERCENT AUTO 1.3 % (0.0-1.0); EOSINOPHILS ABSOLUTE AUTO 0.14 K/uL (0.00-0.45); EOSINOPHILS PERCENT AUTO 2.2 % (0.0-6.0); HEMATOCRIT 48.4 % (42.0-52.0); HEMOGLOBIN 16.6 g/dL (14.0-18.0); IMMATURE GRAN ABSOLUTE AUTO 0.02 K/uL (0.00-0.05); IMMATURE GRAN PERCENT AUTO 0.3 % (0.0-0.4); LYMPHOCYTES ABSOLUTE AUTO 1.22 K/uL (1.00-4.80); LYMPHOCYTES PERCENT AUTO 19.1 % (24.0-44.0); MEAN CORPUSCULAR HEMOGLOBIN 31.6 pg (28.0-32.0); MEAN CORPUSCULAR HGB CONC 34.3 g/dL (32.0-36.0); MEAN CORPUSCULAR VOLUME 92.2 fL (83.0-99.0); MEAN PLATELET VOLUME 9.2 fL (9.4-12.4); MONOCYTES ABSOLUTE AUTO 0.53 K/uL (0.00-0.80); MONOCYTES PERCENT AUTO 8.3 % (0.0-8.0); NEUTROPHILS PERCENT AUTO 68.8 % (41.0-71.0); PLATELET COUNT,PLT 132 K/uL (150-400); RED BLOOD CELL COUNT 5.25 M/uL (4.52-5.90); WHITE BLOOD CELL COUNT,WBC 6.39 K/uL (3.9-11.3)
[2024-05-18 17:46] LABS: A/G RATIO 0.6 (0.9-1.6); ALBUMIN 2.8 g/dL (3.4-5.0); BILIRUBIN TOTAL 0.5 mg/dL (0.2-1.0); CALCIUM 8.4 mg/dL (8.5-10.1); CARBON DIOXIDE,CO2 26.8 mmol/L (21.0-32.0); CREATININE 1.5 mg/dL (0.8-1.3); EST CRCL DRUG DOSING (CG) 51.79 mL/min; MAGNESIUM 1.8 mg/dL (1.8-2.4); POTASSIUM,K 4.8 mmol/L (3.5-5.1); PROTEIN TOTAL,TP 7.2 g/dL (6.4-8.2)
[2024-05-18] MEDS: Iopamidol 755 MG/ML 500 ML Multipack Bottle IVPUSH STA (18:53)
[2024-05-18 19:53] VITALS: BP 172/104; PULSE 66
== END 2024-05-18 19:55 | disposition home or self-care (01) ==
LOC: MW.ED 16:27
DX: I10 Essential (primary) hypertension (principal); R51.9 Headache, unspecified; J44.9 Chronic obstructive pulmonary disease, unspecified; E66.9 Obesity, unspecified; Z68.31 Body mass index [BMI] 31.0-31.9, adult; Z86.16 Personal history of COVID-19; Z79.899 Other long term (current) drug therapy
CPT/HCPCS: 36415; 71046; 71275; 80053; 83735; 84484; 85025; 85379; 93005; 99285; Q9967

== ENCOUNTER 2024-12-06 16:01 | Observation (INO) | payer MEDICARE, OTHER ==
[2024-12-06 16:30] LABS: BASOPHILS ABSOLUTE AUTO 0.08 K/uL (0.00-0.20); BASOPHILS PERCENT AUTO 0.9 % (0.0-1.0); EOSINOPHILS ABSOLUTE AUTO 0.06 K/uL (0.00-0.45); EOSINOPHILS PERCENT AUTO 0.7 % (0.0-6.0); HEMATOCRIT 40.1 % (42.0-52.0); HEMOGLOBIN 13.4 g/dL (14.0-18.0); IMMATURE GRAN ABSOLUTE AUTO 0.05 K/uL (0.00-0.05); IMMATURE GRAN PERCENT AUTO 0.6 % (0.0-0.4); LYMPHOCYTES ABSOLUTE AUTO 1.14 K/uL (1.00-4.80); LYMPHOCYTES PERCENT AUTO 13.4 % (24.0-44.0); MEAN CORPUSCULAR HEMOGLOBIN 30.9 pg (28.0-32.0); MEAN CORPUSCULAR HGB CONC 33.4 g/dL (32.0-36.0); MEAN CORPUSCULAR VOLUME 92.4 fL (83.0-99.0); MONOCYTES ABSOLUTE AUTO 1.04 K/uL (0.00-0.80); MONOCYTES PERCENT AUTO 12.3 % (0.0-8.0); NEUTROPHILS ABSOLUTE AUTO 6.11 K/uL (1.80-7.70); NEUTROPHILS PERCENT AUTO 72.1 % (41.0-71.0); PLATELET COUNT,PLT 151 K/uL (150-400); RED BLOOD CELL COUNT 4.34 M/uL (4.52-5.90); WHITE BLOOD CELL COUNT,WBC 8.48 K/uL (3.9-11.3)
[2024-12-06 16:46] LABS: A/G RATIO 0.7 (0.9-1.6); BILIRUBIN TOTAL 1.3 mg/dL (0.2-1.0); CALCIUM 9.1 mg/dL (8.5-10.1); CARBON DIOXIDE,CO2 26.4 mmol/L (21.0-32.0); CREATININE 1.7 mg/dL (0.8-1.3); EST CRCL DRUG DOSING (CG) 43.75 mL/min; POTASSIUM,K 4.4 mmol/L (3.5-5.1); PROTEIN TOTAL,TP 7.6 g/dL (6.4-8.2)
[2024-12-06] MEDS: HYDROmorphone 1 MG/ML Syringe IVPUSH ONE (16:55)
[2024-12-06] MEDS: Sodium Chloride 0.9% 1,000 ML IV ONE (17:18)
[2024-12-06] MEDS: Iopamidol 755 MG/ML 500 ML Multipack Bottle IVPUSH STA (18:18)
[2024-12-06 21:31] LABS: APPEARANCE,URINE CLEAR; BILIRUBIN,URINE NEGATIVE (NEGATIVE); COLOR,URINE YELLOW; GLUCOSE,URINE NEGATIVE (NEGATIVE); KETONES,URINE NEGATIVE (NEGATIVE); LEUKOCYTE ESTERASE,URINE NEGATIVE (NEGATIVE); NITRITE,URINE NEGATIVE (NEGATIVE); OCCULT BLOOD,URINE MODERATE (NEGATIVE); PROTEIN,URINE 100 mg/dL (NEGATIVE); UROBILINOGEN,URINE 0.2 EU/dL (<2.0)
[2024-12-06 22:02] LABS: BACTERIA,URINE FEW (NEGATIVE); EPITHELIAL CELLS,URINE FEW (NONE-FEW); MUCUS,URINE LIGHT (NONE-MOD)
[2024-12-07] MEDS ORDERED: diazePAM 5 MG Tab PO PRN (00:21)
[2024-12-07] MEDS ORDERED: HYDROmorphone 2 MG Tab PO PRN (00:21)
[2024-12-07] MEDS: Sodium Chloride 0.9% 1,000 ML IV ONE (01:18)
[2024-12-07] MEDS: HYDROmorphone 2 MG Tab PO PRN (01:20)
[2024-12-07 05:47] LABS: BASOPHILS ABSOLUTE AUTO 0.04 K/uL (0.00-0.20); BASOPHILS PERCENT AUTO 0.7 % (0.0-1.0); EOSINOPHILS ABSOLUTE AUTO 0.07 K/uL (0.00-0.45); EOSINOPHILS PERCENT AUTO 1.2 % (0.0-6.0); HEMATOCRIT 37.1 % (42.0-52.0); IMMATURE GRAN ABSOLUTE AUTO 0.01 K/uL (0.00-0.05); IMMATURE GRAN PERCENT AUTO 0.2 % (0.0-0.4); LYMPHOCYTES ABSOLUTE AUTO 0.82 K/uL (1.00-4.80); LYMPHOCYTES PERCENT AUTO 13.6 % (24.0-44.0); MEAN CORPUSCULAR HEMOGLOBIN 30.5 pg (28.0-32.0); MEAN CORPUSCULAR HGB CONC 32.3 g/dL (32.0-36.0); MEAN CORPUSCULAR VOLUME 94.4 fL (83.0-99.0); MEAN PLATELET VOLUME 9.1 fL (9.4-12.4); MONOCYTES ABSOLUTE AUTO 0.86 K/uL (0.00-0.80); MONOCYTES PERCENT AUTO 14.3 % (0.0-8.0); NEUTROPHILS ABSOLUTE AUTO 4.21 K/uL (1.80-7.70); PLATELET COUNT,PLT 121 K/uL (150-400); RED BLOOD CELL COUNT 3.93 M/uL (4.52-5.90); WHITE BLOOD CELL COUNT,WBC 6.01 K/uL (3.9-11.3)
[2024-12-07 06:05] LABS: CALCIUM 8.8 mg/dL (8.5-10.1); CARBON DIOXIDE,CO2 27.1 mmol/L (21.0-32.0); CREATININE 1.6 mg/dL (0.8-1.3); EST CRCL DRUG DOSING (CG) 46.48 mL/min; POTASSIUM,K 4.4 mmol/L (3.5-5.1)
[2024-12-07] MEDS: Metoprolol Succinate 100 MG Tab.ER PO SCH (08:24)
[2024-12-07] MEDS: Spironolactone 25 MG Tab PO SCH (08:24)
[2024-12-07] MEDS: fentaNYL 75 MCG/HR Transdermal Patch TRDERM SCH (11:32)
[2024-12-07] MEDS: Ondansetron 4 MG Tab.DIS PO ONE (14:47)
[2024-12-07 16:03] VITALS: BP 139/86; PULSE 99
== END 2024-12-07 15:00 | disposition home or self-care (01) ==
LOC: MW.ED 16:01 → MW.MS 21:48
PROVIDERS: ADMIT Family Medicine; ATTEND Family Medicine
DX: C7A.8 Other malignant neuroendocrine tumors (principal); C79.51 Secondary malignant neoplasm of bone; I25.10 Atherosclerotic heart disease of native coronary artery without angina pectoris; E78.5 Hyperlipidemia, unspecified; F41.9 Anxiety disorder, unspecified; E66.9 Obesity, unspecified; Z79.899 Other long term (current) drug therapy
CPT/HCPCS: 36415; 70450; 71260; 74177; 80048; 80053; 81001; 82947; 83690; 83735; 84484; 85025; 93005; 96361; 96374; 99285; A9270; G0378; J1171; J7030; Q9967

== ENCOUNTER 2025-01-03 12:49 | Inpatient (IN) | payer MEDICARE, OTHER ==
[2025-01-03] MEDS ORDERED: Sodium Chloride 0.9% 10 ML Syringe FLUSH PRN ×2 (13:06→22:05)
[2025-01-03] MEDS ORDERED: Sodium Chloride 0.9% 2.5 ML Syringe FLUSH PRN ×2 (13:06→22:05)
[2025-01-03] MEDS: Ondansetron 4 MG/2 ML SDV IVPUSH ONE (13:18)
[2025-01-03 13:27] LABS: BASOPHILS ABSOLUTE AUTO 0.02 K/uL (0.00-0.20); BASOPHILS PERCENT AUTO 0.3 % (0.0-1.0); EOSINOPHILS ABSOLUTE AUTO 0.07 K/uL (0.00-0.45); EOSINOPHILS PERCENT AUTO 0.9 % (0.0-6.0); IMMATURE GRAN ABSOLUTE AUTO 0.49 K/uL (0.00-0.05); IMMATURE GRAN PERCENT AUTO 6.2 % (0.0-0.4); LYMPHOCYTES ABSOLUTE AUTO 0.80 K/uL (1.00-4.80); LYMPHOCYTES PERCENT AUTO 10.2 % (24.0-44.0); MEAN PLATELET VOLUME 9.8 fL (9.4-12.4); MONOCYTES ABSOLUTE AUTO 0.17 K/uL (0.00-0.80); MONOCYTES PERCENT AUTO 2.2 % (0.0-8.0); NEUTROPHILS ABSOLUTE AUTO 6.33 K/uL (1.80-7.70); NEUTROPHILS PERCENT AUTO 80.2 % (41.0-71.0); NRBC ABSOLUTE 0.00 K/uL (0.00-0.02); NRBC PERCENT 0.0 /100WBC (0.0-0.2); PLATELET COUNT,PLT 84 K/uL (150-400); RED BLOOD CELL COUNT 4.32 M/uL (4.52-5.90); WHITE BLOOD CELL COUNT,WBC 7.88 K/uL (3.9-11.3)
[2025-01-03 14:12] LABS: A/G RATIO 0.7 (0.9-1.6); ALANINE AMINOTRANSFERASE,ALT 175.0 IU/L (14-63); ASPARTATE AMNIOTRANSFERASE,AST 134.0 IU/L (15-37); BILIRUBIN TOTAL 1.5 mg/dL (0.2-1.0); BLOOD UREA NITROGEN,BUN 31.0 mg/dL (7.0-18.0); CARBON DIOXIDE,CO2 20.0 mmol/L (21.0-32.0); CHLORIDE,CL 101.0 mmol/L (98-107); CREATININE 1.3 mg/dL (0.8-1.3); EST CRCL DRUG DOSING (CG) 57.21 mL/min; GLUCOSE RANDOM 92.0 mg/dL (74-106); POTASSIUM,K 4.8 mmol/L (3.5-5.1); PROTEIN TOTAL,TP 7.1 g/dL (6.4-8.2); SODIUM,NA 135.0 mmol/L (136-148)
[2025-01-03 14:13] LABS: ESTIMATED GFR 59.0 mL/min (>60)
[2025-01-03 14:16] LABS: LACTIC ACID 1.4 mmol/L (0.4-2.0)
[2025-01-03] MEDS: Iopamidol 755 MG/ML 500 ML Multipack Bottle IVPUSH STA ×2 (15:02→19:21)
[2025-01-03 15:54] LABS: APPEARANCE,URINE CLEAR; GLUCOSE,URINE NEGATIVE (NEGATIVE); OCCULT BLOOD,URINE NEGATIVE (NEGATIVE)
[2025-01-03 16:01] LABS: EPITHELIAL CELLS,URINE RARE (NONE-FEW)
[2025-01-03] MEDS: Calcium Gluconate 10% 1 GM/10 ML SDV IVPUSH ONE (16:27)
[2025-01-03] MEDS: Ketamine 500 mg/10 ML MDV IV ONE (17:30)
[2025-01-03] MEDS: fentaNYL 100 MCG/2 ML SDV IVPUSH ONE ×2 (18:33→23:00)
[2025-01-03] MEDS ORDERED: Ketamine 500 mg/10 ML MDV IV ONE ×2 (18:53→18:54)
[2025-01-03] MEDS: Ketamine 500 mg/10 ML MDV IV PRN (19:11)
[2025-01-03] MEDS: LORazepam 2 MG/ML SDV IVPUSH ONE ×3 (19:47→21:14)
[2025-01-03] MEDS: fentaNYL/Normal Saline 2,500 MCG in Premix Bag 1 BAG IV SCH (21:14)
[2025-01-03] MEDS ORDERED: Ondansetron 4 MG/2 ML SDV IVPUSH PRN (22:05)
[2025-01-04] MEDS: Lactated Ringers 1,000 ML IV ONE (06:06)
[2025-01-04] MEDS ORDERED: fentaNYL/Normal Saline 2,500 MCG in Premix Bag 1 BAG IV SCH (11:00)
[2025-01-04] MEDS: Dexamethasone 4 MG/ML SDV IVPUSH SCH (11:53)
[2025-01-04] MEDS: HYDROmorphone/Normal Saline 6 MG/30 ML PCA Vial IV PRN ×2 (13:29→15:00)
[2025-01-05 05:41] LABS: MEAN PLATELET VOLUME 9.7 fL (9.4-12.4); NRBC ABSOLUTE 0.00 K/uL (0.00-0.02); NRBC PERCENT 0.0 /100WBC (0.0-0.2); PLATELET COUNT,PLT 58 K/uL (150-400); RED BLOOD CELL COUNT 4.03 M/uL (4.52-5.90); WHITE BLOOD CELL COUNT,WBC 1.06 K/uL (3.9-11.3)
[2025-01-05 06:06] LABS: A/G RATIO 0.6 (0.9-1.6); ALANINE AMINOTRANSFERASE,ALT 230.0 IU/L (14-63); ASPARTATE AMNIOTRANSFERASE,AST 182.0 IU/L (15-37); BILIRUBIN TOTAL 1.1 mg/dL (0.2-1.0); BLOOD UREA NITROGEN,BUN 30.0 mg/dL (7.0-18.0); CARBON DIOXIDE,CO2 20.4 mmol/L (21.0-32.0); CHLORIDE,CL 102.0 mmol/L (98-107); CREATININE 1.5 mg/dL (0.8-1.3); EST CRCL DRUG DOSING (CG) 49.58 mL/min; GLUCOSE RANDOM 142.0 mg/dL (74-106); POTASSIUM,K 5.4 mmol/L (3.5-5.1); PROTEIN TOTAL,TP 6.6 g/dL (6.4-8.2); SODIUM,NA 134.0 mmol/L (136-148)
[2025-01-05 06:08] LABS: SEG NEUTROPHILS ABSOLUTE MAN 0.68 K/uL (1.80-7.70); SEG NEUTROPHILS PERCENT MAN 64 % (41-71)
[2025-01-05 06:09] LABS: BAND ABSOLUTE MAN 0.13; BAND PERCENT MAN 12 %; BASOPHILS ABSOLUTE MAN 0.00 K/uL (0.00-0.20); BASOPHILS PERCENT MAN 0 % (0-1); EOSINOPHILS ABSOLUTE MAN 0.00 K/uL (0.00-0.45); EOSINOPHILS PERCENT MAN 0 % (0-6); LYMPHOCYTES ABSOLUTE MAN 0.24 K/uL (1.00-4.80); LYMPHOCYTES PERCENT MAN 23 % (24-44); MONOCYTES ABSOLUTE MAN 0.01 K/uL (0.00-0.80); MONOCYTES PERCENT MAN 1 % (0-8)
[2025-01-05 06:11] LABS: ESTIMATED GFR 49.0 mL/min (>60)
[2025-01-05] MEDS ORDERED: Naloxone 0.4 MG/ML SDV IVPUSH PRN (09:58)
[2025-01-05 13:25] LABS: BLOOD UREA NITROGEN,BUN 36.0 mg/dL (7.0-18.0); CARBON DIOXIDE,CO2 21.5 mmol/L (21.0-32.0); CHLORIDE,CL 104.0 mmol/L (98-107); CREATININE 1.5 mg/dL (0.8-1.3); EST CRCL DRUG DOSING (CG) 49.58 mL/min; GLUCOSE RANDOM 168.0 mg/dL (74-106); POTASSIUM,K 5.1 mmol/L (3.5-5.1); SODIUM,NA 134.0 mmol/L (136-148)
[2025-01-05 13:27] LABS: ESTIMATED GFR 49.0 mL/min (>60)
[2025-01-06 05:24] LABS: MEAN PLATELET VOLUME 9.7 fL (9.4-12.4); NRBC ABSOLUTE 0.00 K/uL (0.00-0.02); NRBC PERCENT 0.0 /100WBC (0.0-0.2); PLATELET COUNT,PLT 54 K/uL (150-400); RED BLOOD CELL COUNT 4.35 M/uL (4.52-5.90)
[2025-01-06 05:57] LABS: A/G RATIO 0.6 (0.9-1.6); ALANINE AMINOTRANSFERASE,ALT 307.0 IU/L (14-63); ASPARTATE AMNIOTRANSFERASE,AST 207.0 IU/L (15-37); BILIRUBIN TOTAL 1.0 mg/dL (0.2-1.0); BLOOD UREA NITROGEN,BUN 38.0 mg/dL (7.0-18.0); CARBON DIOXIDE,CO2 22.8 mmol/L (21.0-32.0); CHLORIDE,CL 102.0 mmol/L (98-107); CREATININE 1.3 mg/dL (0.8-1.3); EST CRCL DRUG DOSING (CG) 57.21 mL/min; GLUCOSE RANDOM 160.0 mg/dL (74-106); POTASSIUM,K 5.0 mmol/L (3.5-5.1); PROTEIN TOTAL,TP 6.6 g/dL (6.4-8.2); SODIUM,NA 134.0 mmol/L (136-148)
[2025-01-06 06:06] LABS: ESTIMATED GFR 59.0 mL/min (>60)
[2025-01-06 06:18] LABS: WHITE BLOOD CELL COUNT,WBC 0.44 K/uL (3.9-11.3)
[2025-01-06 06:19] LABS: BAND ABSOLUTE MAN 0.01; BAND PERCENT MAN 3 %; EOSINOPHILS ABSOLUTE MAN 0.01 K/uL (0.00-0.45); EOSINOPHILS PERCENT MAN 2 % (0-6); LYMPHOCYTES ABSOLUTE MAN 0.26 K/uL (1.00-4.80); LYMPHOCYTES PERCENT MAN 59 % (24-44); MONOCYTES ABSOLUTE MAN 0.04 K/uL (0.00-0.80); MONOCYTES PERCENT MAN 8 % (0-8); SEG NEUTROPHILS ABSOLUTE MAN 0.12 K/uL (1.80-7.70); SEG NEUTROPHILS PERCENT MAN 28 % (41-71)
[2025-01-06] MEDS: Metoprolol Succinate 100 MG Tab.ER PO SCH (11:35)
[2025-01-06] MEDS: Morphine 15 MG Tab.ER PO SCH (11:39)
[2025-01-07 05:40] LABS: MEAN PLATELET VOLUME 10.3 fL (9.4-12.4); NRBC ABSOLUTE 0.00 K/uL (0.00-0.02); NRBC PERCENT 0.0 /100WBC (0.0-0.2); PLATELET COUNT,PLT 26 K/uL (150-400); RED BLOOD CELL COUNT 4.42 M/uL (4.52-5.90)
[2025-01-07 06:07] LABS: A/G RATIO 0.6 (0.9-1.6); ALANINE AMINOTRANSFERASE,ALT 223.0 IU/L (14-63); ASPARTATE AMNIOTRANSFERASE,AST 100.0 IU/L (15-37); BILIRUBIN TOTAL 1.0 mg/dL (0.2-1.0); BLOOD UREA NITROGEN,BUN 53.0 mg/dL (7.0-18.0); CARBON DIOXIDE,CO2 21.0 mmol/L (21.0-32.0); CHLORIDE,CL 103.0 mmol/L (98-107); CREATININE 2.2 mg/dL (0.8-1.3); EST CRCL DRUG DOSING (CG) 33.8 mL/min; GLUCOSE RANDOM 78.0 mg/dL (74-106); POTASSIUM,K 5.1 mmol/L (3.5-5.1); PROTEIN TOTAL,TP 6.3 g/dL (6.4-8.2); SODIUM,NA 136.0 mmol/L (136-148)
[2025-01-07 06:18] LABS: ESTIMATED GFR 31.0 mL/min (>60)
[2025-01-07 06:26] LABS: WHITE BLOOD CELL COUNT,WBC 0.34 K/uL (3.9-11.3)
[2025-01-07 07:03] LABS: BAND ABSOLUTE MAN 0.01; BAND PERCENT MAN 2 %; LYMPHOCYTES ABSOLUTE MAN 0.07 K/uL (1.00-4.80); LYMPHOCYTES PERCENT MAN 22 % (24-44); MONOCYTES ABSOLUTE MAN 0.23 K/uL (0.00-0.80); MONOCYTES PERCENT MAN 68 % (0-8); SEG NEUTROPHILS ABSOLUTE MAN 0.03 K/uL (1.80-7.70); SEG NEUTROPHILS PERCENT MAN 8 % (41-71)
[2025-01-08 05:46] LABS: MEAN PLATELET VOLUME 8.3 fL (9.4-12.4); NRBC ABSOLUTE 0.00 K/uL (0.00-0.02); NRBC PERCENT 0.0 /100WBC (0.0-0.2); PLATELET COUNT,PLT 14 K/uL (150-400); RED BLOOD CELL COUNT 4.39 M/uL (4.52-5.90)
[2025-01-08 06:21] LABS: A/G RATIO 0.5 (0.9-1.6); ALANINE AMINOTRANSFERASE,ALT 136.0 IU/L (14-63); ASPARTATE AMNIOTRANSFERASE,AST 49.0 IU/L (15-37); BILIRUBIN TOTAL 1.0 mg/dL (0.2-1.0); BLOOD UREA NITROGEN,BUN 49.0 mg/dL (7.0-18.0); CHLORIDE,CL 107.0 mmol/L (98-107); CREATININE 1.8 mg/dL (0.8-1.3); EST CRCL DRUG DOSING (CG) 41.31 mL/min; GLUCOSE RANDOM 96.0 mg/dL (74-106); PHOSPHORUS 2.8 mg/dL (2.6-4.7); POTASSIUM,K 4.8 mmol/L (3.5-5.1); PROTEIN TOTAL,TP 6.1 g/dL (6.4-8.2); SODIUM,NA 140.0 mmol/L (136-148)
[2025-01-08 06:33] LABS: CARBON DIOXIDE,CO2 19.3 mmol/L (21.0-32.0); ESTIMATED GFR 40.0 mL/min (>60)
[2025-01-08 06:52] LABS: WHITE BLOOD CELL COUNT,WBC 0.51 K/uL (3.9-11.3)
[2025-01-08 06:53] LABS: BAND ABSOLUTE MAN 0.02; BAND PERCENT MAN 4 %; EOSINOPHILS ABSOLUTE MAN 0.01 K/uL (0.00-0.45); EOSINOPHILS PERCENT MAN 2 % (0-6); LYMPHOCYTES ABSOLUTE MAN 0.17 K/uL (1.00-4.80); LYMPHOCYTES PERCENT MAN 34 % (24-44); MONOCYTES ABSOLUTE MAN 0.13 K/uL (0.00-0.80); MONOCYTES PERCENT MAN 25 % (0-8); SEG NEUTROPHILS ABSOLUTE MAN 0.18 K/uL (1.80-7.70); SEG NEUTROPHILS PERCENT MAN 35 % (41-71)
[2025-01-09] MEDS: LORazepam 2 MG/ML SDV IVPUSH ONE (04:57)
[2025-01-09 08:22] VITALS: BP 110/67; PULSE 140
[2025-01-09] MEDS: Scopalamine 1mg/3day Transdermal Patch TRDERM PRN (10:56)
== END 2025-01-09 15:00 | disposition expired | DRG 948 ==
LOC: MW.ED 12:49 → MW.MS 16:20 → OBSVTOIN 21:09 → MW.ICU 21:27 → MW.MS 21:30
PROVIDERS: ADMIT Family Medicine; ATTEND Internal Medicine
DX: R10.84 Generalized abdominal pain (principal); G89.3 Neoplasm related pain (acute) (chronic); C7A.8 Other malignant neuroendocrine tumors; Z75.3 Unavailability and inaccessibility of health-care facilities; C79.51 Secondary malignant neoplasm of bone; C78.7 Secondary malignant neoplasm of liver and intrahepatic bile duct; C77.9 Secondary and unspecified malignant neoplasm of lymph node, unspecified; N17.9 Acute kidney failure, unspecified; Z51.5 Encounter for palliative care; Z66 Do not resuscitate; E83.51 Hypocalcemia; D63.0 Anemia in neoplastic disease; I10 Essential (primary) hypertension; J44.9 Chronic obstructive pulmonary disease, unspecified; K52.9 Noninfective gastroenteritis and colitis, unspecified; E66.9 Obesity, unspecified; I25.10 Atherosclerotic heart disease of native coronary artery without angina pectoris; B18.2 Chronic viral hepatitis C; R45.1 Restlessness and agitation; F41.9 Anxiety disorder, unspecified; E86.0 Dehydration; D72.818 Other decreased white blood cell count; Z97.8 Presence of other specified devices; Z79.899 Other long term (current) drug therapy; Z79.52 Long term (current) use of systemic steroids; Z68.31 Body mass index [BMI] 31.0-31.9, adult; Z98.49 Cataract extraction status, unspecified eye; Z98.890 Other specified postprocedural states; Z90.89 Acquired absence of other organs; Z87.891 Personal history of nicotine dependence
CPT/HCPCS: 36415; 70450; 71275; 74174; 74177; 80053; 81001; 83605; 83690; 83735; 85025; 96361; 96374; 96375; 99285; J0612; J1171; J2060 ×2; J2405; J3010; J3490 ×2; J7030; Q9967 ×2; 51702; 80048; 82140; 84100; 87324; 96365; 96366; 96372; 96376; 99222; 99232; 99238; A9270-GY; G0378; J1100; J1630; J3360; J7040; J7050; J7120